=== PATIENT | female | born 1960 | race American Indian/Alaskan Native ===

== ENCOUNTER 2016-08-29 14:54 | Emergency (ER) | payer MEDICARE ==
[2016-08-29 16:13] LABS: Basophils % (Auto) 0.9 % (0.0-1.8); Eosinophils % (Auto) 3.3 % (0.0-4.3); Hematocrit 35.9 % (30.3-42.9); Hemoglobin 11.4 gm/dl (10.1-14.3); Mean Corpuscular HGB Conc 32 % (30-34); Mean Corpuscular Hemoglobin 26 pg (28-32); Mean Corpuscular Volume 83 fl (79-97); Platelet Count 216 K/mm3 (140-440); Red Blood Count 4.31 M/mm3 (3.65-5.03); Red Cell Distribution Width 14.5 % (13.2-15.2); White Blood Count 4.6 K/mm3 (4.5-11.0)
[2016-08-29 16:22] LABS: INR 0.92 (0.87-1.13)
[2016-08-29 16:23] LABS: Partial Thromboplastin Time 27.7 Sec. (24.2-36.6)
[2016-08-29 16:34] LABS: Anion Gap 17 mmol/L; Blood Urea Nitrogen 12 mg/dL (7-17); Calcium 9.1 mg/dL (8.4-10.2); Carbon Dioxide 27 mmol/L (22-30); Chloride 100.7 mmol/L (98-107); Glucose 253 mg/dL (65-100); Potassium 4.1 mmol/L (3.6-5.0); Sodium 141 mmol/L (137-145)
[2016-08-30] MEDS ORDERED: REGLAN PO ONE (02:57)
[2016-08-30] MEDS ORDERED: NORCO 5/325 PO ONE (02:57)
--- NOTE | 2016-08-30 03:01 | Emergency Department Report ---
ED ENT HPI - General Chief complaint: Sore Throat Stated complaint: CHEST PAIN Source: patient Mode of arrival: Ambulatory Limitations: No Limitations - History of Present Illness Initial comments: This is a pleasant 56-year-old female who indicates some throat discomfort for the past several months. She reports lower voice. Somewhat hoarse in nature. She also reports tenderness when speaking too much or straining her voice. She indicates she saw an ENT specialist in March or May. 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 She did receive a prescription for medication which she indicated did not help her discomfort. She reports following up in 1 month later and being told she needed some type of CT or ultrasound study. Nothing was arranged at this time patient was lost to follow-up and now presents here. She is asking for the reason for her pain and requesting that we do CT and ultrasound at this time. She does indicate equally that she has been having intermittent lower abdominal pains. She does attribute these to coughing so very much. Office due to irritation from the throat. No fevers or reported no nausea vomiting or diarrhea is reported. MD complaint: sore throat -: month(s) (several) Severity scale (0 -10): 7 Quality: burning Consistency: intermittent Improves with: none Worsens with: other (straining voice) Associated Symptoms: cough, sore throat. denies: fever - Related Data Home Medications Medication Instructions Recorded Confirmed Last Taken Metoprolol [Lopressor TAB] 50 mg PO BID 06/18/13 08/30/16 01/16/15 100 mg metFORMIN [Glucophage] 1,000 mg PO BID 06/18/13 08/30/16 01/16/15 2000mg Simvastatin 10 mg PO QDAY 05/06/14 08/30/16 01/16/15 10mg glipiZIDE [Glucotrol] 5 mg PO QDAY 08/22/15 08/30/16 Unknown Previous Rx's Medication Instructions Recorded Last Taken Type Famotidine [Pepcid] 20 mg PO BID #60 tablet 08/24/15 Unknown Rx HYDROcodone/APAP 5-325 [[place] 1 each PO Q6HR PRN #20 tablet 08/30/16 Unknown Rx 5-325 mg TAB] Metoclopramide [Reglan TAB] 10 mg PO TID PRN #30 tablet 08/30/16 Unknown Rx Omeprazole Magnesium [PriLOSEC Otc] 20 mg PO QDAY #30 tablet. 08/30/16 Unknown Rx Allergies Allergy/AdvReac Type Severity Reaction Status Date / Time codeine AdvReac Nausea Verified 08/29/16 15:27 ED Dental HPI - General Chief complaint: Sore Throat Stated complaint: CHEST PAIN Source: patient Mode of arrival: Ambulatory Limitations: No Limitations - Related Data Home Medications Medication Instructions Recorded Confirmed Last Taken Metoprolol [Lopressor TAB] 50 mg PO BID 06/18/13 08/30/16 01/16/15 100 mg metFORMIN [Glucophage] 1,000 mg PO BID 06/18/13 08/30/16 01/16/15 2000mg Simvastatin 10 mg PO QDAY 05/06/14 08/30/16 01/16/15 10mg glipiZIDE [Glucotrol] 5 mg PO QDAY 08/22/15 08/30/16 Unknown Previous Rx's Medication Instructions Recorded Last Taken Type Famotidine [Pepcid] 20 mg PO BID #60 tablet 08/24/15 Unknown Rx HYDROcodone/APAP 5-325 [[place] 1 each PO Q6HR PRN #20 tablet 08/30/16 Unknown Rx 5-325 mg TAB] Metoclopramide [Reglan TAB] 10 mg PO TID PRN #30 tablet 08/30/16 Unknown Rx Omeprazole Magnesium [PriLOSEC Otc] 20 mg PO QDAY #30 tablet. 08/30/16 Unknown Rx Allergies Allergy/AdvReac Type Severity Reaction Status Date / Time codeine AdvReac Nausea Verified 08/29/16 15:27 ED Review of Systems ROS: Stated complaint: CHEST PAIN Other details as noted in HPI Constitutional: denies: chills, fever Eyes: denies: eye pain, eye discharge, vision change ENT: throat pain. denies: ear pain Respiratory: cough. denies: shortness of breath, wheezing Cardiovascular: denies: chest pain, palpitations Endocrine: no symptoms reported Gastrointestinal: abdominal pain. denies: nausea, diarrhea, constipation Genitourinary: denies: urgency, dysuria, discharge Musculoskeletal: denies: back pain, joint swelling, arthralgia Skin: denies: rash, lesions Neurological: denies: headache, weakness, paresthesias Psychiatric: denies: anxiety, depression Hematological/Lymphatic: denies: easy bleeding, easy bruising ED Past Medical Hx - Past Medical History Hx Hypertension: Yes (pt denies) Hx Diabetes: Yes Hx Liver Disease: No Hx Renal Disease: No Hx Sickle Cell Disease: No Hx Arthritis: Yes Hx Psychiatric Treatment: Yes (anxiety) Hx HIV: No Additional medical history: A fib. High cholesterol - Surgical History Additional Surgical History: cardiac ablation. c section x 3, hysterectomy. right knee replacment 06/13 - Social History Smoking Status: Never Smoker Substance Use Type: None - Medications Home Medications: Home Medications Medication Instructions Recorded Confirmed Last Taken Type Metoprolol [Lopressor TAB] 50 mg PO BID 06/18/13 08/30/16 01/16/15 History 100 mg metFORMIN [Glucophage] 1,000 mg PO BID 06/18/13 08/30/16 01/16/15 History 2000mg Simvastatin 10 mg PO QDAY 05/06/14 08/30/16 01/16/15 History 10mg glipiZIDE [Glucotrol] 5 mg PO QDAY 08/22/15 08/30/16 Unknown History Famotidine [Pepcid] 20 mg PO BID #60 tablet 08/24/15 08/30/16 Unknown Rx HYDROcodone/APAP 5-325 [[place] 1 each PO Q6HR PRN #20 tablet 08/30/16 Unknown Rx 5-325 mg TAB] Metoclopramide [Reglan TAB] 10 mg PO TID PRN #30 tablet 08/30/16 Unknown Rx Omeprazole Magnesium [PriLOSEC Otc] 20 mg PO QDAY #30 tablet. 08/30/16 Unknown Rx ED Physical Exam - General Limitations: No Limitations General appearance: alert, in no apparent distress - Head Head exam: Present: atraumatic, normocephalic - Eye Eye exam: Present: normal appearance - ENT ENT exam: Present: mucous membranes moist - Neck Neck exam: Present: normal inspection, full ROM. Absent: tenderness, meningismus, lymphadenopathy, thyromegaly - Respiratory Respiratory exam: Present: normal lung sounds bilaterally. Absent: respiratory distress, rales, rhonchi, stridor - Cardiovascular Cardiovascular Exam: Present: regular rate, normal rhythm. Absent: systolic murmur, diastolic murmur, rubs, gallop - GI/Abdominal GI/Abdominal exam: Present: soft, normal bowel sounds. Absent: distended, tenderness, guarding - Extremities Exam Extremities exam: Present: normal inspection - Back Exam Back exam: Present: normal inspection - Neurological Exam Neurological exam: Present: alert, oriented X3 - Psychiatric Psychiatric exam: Present: normal affect, normal mood - Skin Skin exam: Present: warm, dry, intact, normal color. Absent: rash ED Course Vital Signs 08/29/16 08/30/16 08/30/16 15:28 02:28 02:30 Temperature 97.8 F Pulse Rate 108 H 99 H Respiratory 18 14 Rate Blood Pressure 119/77 123/95 Blood Pressure [Left] O2 Sat by Pulse 98 98 99 Oximetry 08/30/16 08/30/16 08/30/16 02:41 02:51 02:53 Temperature 98.5 F Pulse Rate 99 H 97 H 99 H Respiratory 20 17 11 L Rate Blood Pressure 123/95 105/69 Blood Pressure 105/69 [Left] O2 Sat by Pulse 100 99 99 Oximetry 08/30/16 08/30/16 08/30/16 02:57 03:00 03:11 Temperature Pulse Rate 95 H 99 H Respiratory 12 15 16 Rate Blood Pressure 107/70 107/70 Blood Pressure [Left] O2 Sat by Pulse 99 98 97 Oximetry 08/30/16 08/30/16 03:21 03:33 Temperature 98.6 F Pulse Rate 94 H Respiratory 16 Rate Blood Pressure 123/95 Blood Pressure [Left] O2 Sat by Pulse Oximetry - Reevaluation(s) Reevaluation #1: 08/30/16 05:30 Patient does clearly appears somewhat uncomfortable here. She does have a hoarse voice. Not muffled. This appears to be a very chronic problem. There is not even any specific exacerbation or acute process that seems to have occurred today. I believe she came into the ED today due to convenience that she had a friend who also is taking into the ED for evaluation. Her sedation with patient regarding her lab tests. From a cardiac standpoint I do not have any suspicion of this being an etiology. She already has been seen by a specialist. I do not feel I have much more to add at this point. I do not suspect impending airway obstruction. I do not suspect an infectious process. Cannot rule out mass or tumor or malignancy. I do feel further evaluation with possible imaging is likely necessary. I did encourage her to follow up with her ENT physician for further delineation of the type of studies they would like to have done. I did review with patient her labs. They are very unremarkable. I feel she is safe for home. Will give symptomatic treatment for now. ED Medical Decision Making - Lab Data Result diagrams: 08/29/16 16:00 08/29/16 16:00 Critical care attestation.: If time is entered above; I have spent that time in minutes in the direct care of this critically ill patient, excluding procedure time. ED Disposition Clinical Impression: Throat pain in adult Disposition: DISCHARGED TO HOME OR SELFCARE Is pt being admited?: No Does the pt Need Aspirin: No Condition: Stable Additional Instructions: Follow with your ENT doctor for continued evaluation and care. I want to trial an antacid to see if it helps with your symptoms. Prescriptions: HYDROcodone/APAP 5-325 [[place] 5-325 mg TAB] 1 each PO Q6HR PRN #20 tablet PRN Reason: Pain Metoclopramide [Reglan TAB] 10 mg PO TID PRN #30 tablet PRN Reason: Nausea Omeprazole Magnesium [PriLOSEC Otc] 20 mg PO QDAY #30 tablet.dr Referrals: SATISH JADE MD [Primary Care Provider] - 3-5 Days Time of Disposition: 03:01
[2016-08-30 03:33] VITALS: BP 123/95
== END 2016-08-30 03:33 | disposition home or self-care (01) ==
LOC: ED 14:54
DX: R07.0 Pain in throat (principal); I10 Essential (primary) hypertension; E11.9 Type 2 diabetes mellitus without complications; M19.90 Unspecified osteoarthritis, unspecified site; E78.00 Pure hypercholesterolemia, unspecified; I48.91 Unspecified atrial fibrillation; Z88.6 Allergy status to analgesic agent
CPT/HCPCS: 36415; 80048; 84484; 85025; 85610; 85730; 93005; 93010; 99284

== ENCOUNTER 2016-11-12 17:38 | Emergency (ER) | payer MEDICARE ==
[2016-11-12] MEDS ORDERED: ZOFRAN ONE (17:42)
[2016-11-12] MEDS ORDERED: ZOFRAN IV ONE (17:50)
[2016-11-12] MEDS ORDERED: MORPHINE IV ONE (18:51)
[2016-11-12] MEDS ORDERED: TORADOL IV ONE (18:51)
[2016-11-12] MEDS ORDERED: NACL 0.9% 1000 ML 1,000 ML IV ONE (18:51)
--- NOTE | 2016-11-12 18:58 | Emergency Department Report ---
ED Chest Pain HPI - General Chief Complaint: Chest Pain Stated Complaint: CHEST PAINS Time Seen by Provider: 11/12/16 18:35 Source: patient Mode of arrival: Stretcher Limitations: No Limitations - History of Present Illness MD Complaint: chest pain Onset/Timin -: Gradual, days(s) Pain Location: substernal, epigastric Pain Radiation: LUE Severity: mild Severity scale (0 -10): 1 Consistency: intermittent Improves With: nothing Worsens With: nothing re: denies: nausea, vomting, diaphoresis, dyspnea, sense of impending doom Other Symptoms: cough Treatments Prior to Arrival: none Aspirin use within the Past 7 Days: (1) Yes - Related Data On Oral Contraceptives: No Home Medications Medication Instructions Recorded Confirmed Last Taken Metoprolol [Lopressor TAB] 50 mg PO BID 06/18/13 08/30/16 01/16/15 100 mg metFORMIN [Glucophage] 1,000 mg PO BID 06/18/13 08/30/16 01/16/15 2000mg Simvastatin 10 mg PO QDAY 05/06/14 08/30/16 01/16/15 10mg glipiZIDE [Glucotrol] 5 mg PO QDAY 08/22/15 08/30/16 Unknown Previous Rx's Medication Instructions Recorded Last Taken Type Metoclopramide [Reglan TAB] 10 mg PO TID PRN #30 tablet 08/30/16 Unknown Rx Omeprazole Magnesium [PriLOSEC Otc] 20 mg PO QDAY #30 tablet. 08/30/16 Unknown Rx Famotidine [Pepcid] 20 mg PO BID #60 tablet 11/12/16 Unknown Rx HYDROcodone/APAP 5-325 [[place] 1 each PO Q6HR PRN #20 tablet 11/12/16 Unknown Rx 5-325 mg TAB] Allergies Allergy/AdvReac Type Severity Reaction Status Date / Time codeine AdvReac Nausea Verified 08/29/16 15:27 TIERNEY score - Tierney Score Age > 65: (0) No Aspirin use within the Past 7 Days: (1) Yes 3 or more CAD Risk Factors: (0) No 2 or more Angina events in past 24 hrs: (0) No Known CAD with more than 50% Stenosis: (0) No Elevated Cardiac Markers: (0) No ST Deviation Greater than 0.5mm: (0) No TIERNEY Score: 1 ED Review of Systems ROS: Stated complaint: CHEST PAINS Other details as noted in HPI Comment: All other systems reviewed and negative ED Past Medical Hx - Past Medical History Hx Hypertension: Yes (pt denies) Hx Diabetes: Yes Hx Liver Disease: No Hx Renal Disease: No Hx Sickle Cell Disease: No Hx Arthritis: Yes Hx Psychiatric Treatment: Yes (anxiety) Hx HIV: No Additional medical history: A fib. High cholesterol - Surgical History Additional Surgical History: cardiac ablation. c section x 3, hysterectomy. right knee replacment 06/13 - Social History Smoking Status: Never Smoker - Medications Home Medications: Home Medications Medication Instructions Recorded Confirmed Last Taken Type Metoprolol [Lopressor TAB] 50 mg PO BID 06/18/13 08/30/16 01/16/15 History 100 mg metFORMIN [Glucophage] 1,000 mg PO BID 06/18/13 08/30/16 01/16/15 History 2000mg Simvastatin 10 mg PO QDAY 05/06/14 08/30/16 01/16/15 History 10mg glipiZIDE [Glucotrol] 5 mg PO QDAY 08/22/15 08/30/16 Unknown History Metoclopramide [Reglan TAB] 10 mg PO TID PRN #30 tablet 08/30/16 Unknown Rx Omeprazole Magnesium [PriLOSEC Otc] 20 mg PO QDAY #30 tablet. 08/30/16 Unknown Rx Famotidine [Pepcid] 20 mg PO BID #60 tablet 11/12/16 Unknown Rx HYDROcodone/APAP 5-325 [[place] 1 each PO Q6HR PRN #20 tablet 11/12/16 Unknown Rx 5-325 mg TAB] ED Physical Exam - General Limitations: No Limitations General appearance: alert, in no apparent distress - Head Head exam: Present: atraumatic, normocephalic - Eye Eye exam: Present: normal appearance - ENT ENT exam: Present: mucous membranes moist - Neck Neck exam: Present: normal inspection - Respiratory Respiratory exam: Present: normal lung sounds bilaterally. Absent: respiratory distress - Cardiovascular Cardiovascular Exam: Present: regular rate, normal rhythm. Absent: systolic murmur, diastolic murmur, rubs, gallop - GI/Abdominal GI/Abdominal exam: Present: soft, normal bowel sounds - Extremities Exam Extremities exam: Present: normal inspection - Back Exam Back exam: Present: normal inspection - Neurological Exam Neurological exam: Present: alert, oriented X3 - Psychiatric Psychiatric exam: Present: normal affect, normal mood - Skin Skin exam: Present: warm, dry, intact, normal color. Absent: rash ED Course Vital Signs 11/12/16 11/12/16 11/12/16 18:08 18:56 18:58 Temperature 98.3 F Pulse Rate 87 Respiratory 16 16 Rate Blood Pressure 118/79 Blood Pressure 120/68 [Left] O2 Sat by Pulse 99 99 Oximetry ED Medical Decision Making - Lab Data Result diagrams: 11/12/16 19:06 11/12/16 19:06 - EKG Data EKG shows normal: sinus rhythm - EKG Data When compared to previous EKG there are: no significant change Interpretation: unchanged when compared t - Radiology Data Radiology results: image reviewed - Medical Decision Making patient doing well here in the er, labs negative , reproducible chest pain on exam , no pain at this time , troponin negative , will follow up with [facility] tomorrow if pain persists. Aspirin given by ems Critical care attestation.: If time is entered above; I have spent that time in minutes in the direct care of this critically ill patient, excluding procedure time. ED Disposition Clinical Impression: Chest pain Disposition: DISCHARGED TO HOME OR SELFCARE Is pt being admited?: No Does the pt Need Aspirin: No Condition: Good Instructions: Chest Pain (ED) Prescriptions: Famotidine [Pepcid] 20 mg PO BID #60 tablet HYDROcodone/APAP 5-325 [[place] 5-325 mg TAB] 1 each PO Q6HR PRN #20 tablet PRN Reason: Pain
[2016-11-12 19:22] LABS: Basophils % (Auto) 0.6 % (0.0-1.8); Eosinophils % (Auto) 4.6 % (0.0-4.3); Hemoglobin 11.5 gm/dl (10.1-14.3); Mean Corpuscular HGB Conc 32 % (30-34); Mean Corpuscular Hemoglobin 27 pg (28-32); Mean Corpuscular Volume 85 fl (79-97); Platelet Count 235 K/mm3 (140-440); Red Blood Count 4.21 M/mm3 (3.65-5.03); Red Cell Distribution Width 14.4 % (13.2-15.2)
[2016-11-12 19:43] LABS: BUN/Creatinine Ratio 16.66; Blood Urea Nitrogen 15 mg/dL (7-17); Calcium 8.6 mg/dL (8.4-10.2); Carbon Dioxide 25 mmol/L (22-30); Glucose 235 mg/dL (65-100)
[2016-11-12 19:44] LABS: Anion Gap 18 mmol/L; Chloride 101.4 mmol/L (98-107); Potassium 4.4 mmol/L (3.6-5.0); Sodium 140 mmol/L (137-145)
[2016-11-12 20:58] VITALS: BP 120/80
--- NOTE | 2016-11-13 07:44 | XRay Report ---
ROUTINE CHEST, TWO VIEWS: HISTORY: chest pain. The trachea, heart, mediastinal contour, lung fleming and bony thorax are unremarkable. No significant change since 08/22/15. IMPRESSION: Unremarkable chest x-ray.
== END 2016-11-12 20:57 | disposition home or self-care (01) ==
LOC: ED 17:38
DX: R07.2 Precordial pain (principal); I10 Essential (primary) hypertension; E11.9 Type 2 diabetes mellitus without complications; M19.90 Unspecified osteoarthritis, unspecified site; F41.9 Anxiety disorder, unspecified; E78.00 Pure hypercholesterolemia, unspecified; Z90.710 Acquired absence of both cervix and uterus; Z88.5 Allergy status to narcotic agent
CPT/HCPCS: 36415; 71020; 80048; 84484; 85025; 93005; 93010; 96361; 96374; 96375; 99285; J1885; J2270; J2405; J7030

== ENCOUNTER 2017-05-28 11:57 | Inpatient (IN) | payer MEDICARE ==
[2017-05-28] MEDS ORDERED: NACL 0.9% 1000 ML 1,000 ML ONE (12:37)
[2017-05-28] MEDS ORDERED: NACL 0.9% 1000 ML 1,000 ML IV ONE ×2 (12:54→13:50)
[2017-05-28] MEDS ORDERED: REGLAN IV ONE (12:54)
[2017-05-28] MEDS ORDERED: SUBLIMAZE IV ONE (13:00)
[2017-05-28 13:10] LABS: Basophils % (Auto) 0.4 % (0.0-1.8); Eosinophils % (Auto) 3.1 % (0.0-4.3); Hematocrit 35.6 % (30.3-42.9); Hemoglobin 11.1 gm/dl (10.1-14.3); Mean Corpuscular HGB Conc 31 % (30-34); Mean Corpuscular Volume 82 fl (79-97); Platelet Count 256 K/mm3 (140-440); Red Blood Count 4.32 M/mm3 (3.65-5.03); Red Cell Distribution Width 15.5 % (13.2-15.2); White Blood Count 7.2 K/mm3 (4.5-11.0)
[2017-05-28 13:13] LABS: Mean Corpuscular Hemoglobin 26 pg (28-32)
[2017-05-28 13:21] LABS: INR 0.93 (0.87-1.13); Partial Thromboplastin Time 31.6 Sec. (24.2-36.6)
[2017-05-28] MEDS ORDERED: SUBLIMAZE ONE (13:32)
[2017-05-28 13:39] LABS: Alanine Aminotransferase 10 units/L (7-56); Albumin 3.9 g/dL (3.9-5); Albumin/Globulin Ratio 1.2 %; Alkaline Phosphatase 82 units/L (35-129); Anion Gap 22 mmol/L; BUN/Creatinine Ratio 23; Blood Urea Nitrogen 23 mg/dL (7-17); Calcium 8.7 mg/dL (8.4-10.2); Carbon Dioxide 21 mmol/L (22-30); Chloride 97.1 mmol/L (98-107); Glucose 460 mg/dL (65-100); Potassium 4.2 mmol/L (3.6-5.0); Sodium 136 mmol/L (137-145); Total Protein 7.2 g/dL (6.3-8.2)
--- NOTE | 2017-05-28 13:46 | XRay Report ---
AP CHEST: History: Chest pain. AP view of the chest demonstrates a normal mediastinal and cardiac contour with clear lungs and normal bony and soft tissue structures. IMPRESSION: Normal AP chest.
--- NOTE | 2017-05-28 14:51 | Emergency Department Report ---
ED Chest Pain HPI - General Chief Complaint: Chest Pain Stated Complaint: CHEST PAIN Time Seen by Provider: 05/28/17 12:22 Source: patient Mode of arrival: Ambulatory Limitations: No Limitations - History of Present Illness Initial Comments: This is a 56 year-old female presents to the emergency department via EMS from home with complaint of some chest pain with radiation to the right shoulder, some shortness of breath, and some "heavy legs" that has been going on for the past 3 days but has been getting progressively worse. She has a history of atrial fibrillation with previous ablation, hyperlipidemia , [id number] diabetes. She did not take anything for her symptoms prior to presentation. 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 Ovalle. She denies any tobacco or illicit drug use or abuse. No recent travel or sick contacts at home. - Related Data Home Medications Medication Instructions Recorded Confirmed Last Taken metFORMIN [Glucophage] 1,000 mg PO BID 06/18/13 08/30/16 01/16/15 2000mg Cyclobenzaprine [Flexeril] 10 mg PO TID PRN 05/28/17 05/28/17 05/27/17 ISOSORBIDE MONOnitrate [Imdur ER] 30 mg PO DAILY 05/28/17 05/28/17 05/27/17 Promethazine [Phenergan TAB] 25 mg PO BID 05/28/17 05/28/17 05/27/17 Simvastatin [Zocor TAB] 20 mg PO QHS 05/28/17 05/28/17 05/27/17 clonazePAM [KlonoPIN] 2 mg PO QPM 05/28/17 05/28/17 05/27/17 clonazePAM [Klonopin] 1 mg PO QAM 05/28/17 05/28/17 05/27/17 Allergies Allergy/AdvReac Type Severity Reaction Status Date / Time codeine AdvReac Mild Nausea Verified 05/28/17 12:08 Heart Score - HEART Score History: Moderately suspicious EKG: Non-specific Age: 45-65 Risk factors: 1-2 risk factors Troponin: < normal limit HEART Score: 4 ED Review of Systems ROS: Stated complaint: CHEST PAIN Other details as noted in HPI Comment: All other systems reviewed and negative Constitutional: denies: chills, fever Eyes: denies: eye pain, eye discharge, vision change ENT: denies: ear pain, throat pain Respiratory: shortness of breath. denies: cough Cardiovascular: chest pain. denies: edema Gastrointestinal: denies: abdominal pain, nausea, diarrhea Genitourinary: denies: urgency, dysuria, discharge Musculoskeletal: arthralgia. denies: joint swelling Skin: denies: rash, lesions Neurological: denies: headache, numbness ED Past Medical Hx - Past Medical History Previous Medical History?: Yes Hx Hypertension: (pt denies) Hx Diabetes: Yes Hx Liver Disease: No Hx Renal Disease: No Hx Sickle Cell Disease: No Hx Arthritis: Yes Hx Psychiatric Treatment: Yes (anxiety) Hx HIV: No Additional medical history: A fib. High cholesterol - Surgical History Additional Surgical History: cardiac ablation. c section x 3, hysterectomy. right knee replacment 06/13 - Social History Smoking Status: Never Smoker - Medications Home Medications: Home Medications Medication Instructions Recorded Confirmed Last Taken Type metFORMIN [Glucophage] 1,000 mg PO BID 06/18/13 08/30/16 01/16/15 History 2000mg Cyclobenzaprine [Flexeril] 10 mg PO TID PRN 05/28/17 05/28/17 05/27/17 History ISOSORBIDE MONOnitrate [Imdur ER] 30 mg PO DAILY 05/28/17 05/28/17 05/27/17 History Promethazine [Phenergan TAB] 25 mg PO BID 05/28/17 05/28/17 05/27/17 History Simvastatin [Zocor TAB] 20 mg PO QHS 05/28/17 05/28/17 05/27/17 History clonazePAM [KlonoPIN] 2 mg PO QPM 05/28/17 05/28/17 05/27/17 History clonazePAM [Klonopin] 1 mg PO QAM 05/28/17 05/28/17 05/27/17 History ED Physical Exam - General Limitations: No Limitations - Other Other exam information: GENERAL: The patient is well-developed well-nourished. Patient appears uncomfortable. HENT: Normocephalic. Atraumatic. Patient has moist mucous membranes. EYES: Extraocular motions are intact. Pupils equal reactive to light bilaterally. NECK: Supple. Trachea is midline. CHEST/LUNGS: Clear to auscultation. There is no respiratory distress noted. HEART/CARDIOVASCULAR: Regular. There is severe tachycardia. There is no murmur. ABDOMEN: Abdomen is soft, nontender. Patient has normal bowel sounds. There is no abdominal distention. SKIN: Skin is warm and dry. NEURO: The patient is awake, alert, and oriented. The patient is cooperative. The patient has no focal neurologic deficits. The patient has normal speech. MUSCULOSKELETAL: There is no tenderness or deformity. There is no limitation range of motion. There is no evidence of acute injury. ED Course Vital Signs 05/28/17 05/28/17 05/28/17 12:08 12:25 12:30 Temperature 97.6 F Pulse Rate 87 158 H 171 H Respiratory 18 16 31 H Rate Blood Pressure 83/62 100/68 O2 Sat by Pulse 99 98 Oximetry 05/28/17 12:45 Temperature Pulse Rate 104 H Respiratory 12 Rate Blood Pressure 102/69 O2 Sat by Pulse 99 Oximetry TIERNEY score - Tierney Score Age > 65: (0) No Aspirin use within the Past 7 Days: (1) Yes 3 or more CAD Risk Factors: (0) No 2 or more Angina events in past 24 hrs: (1) Yes Known CAD with more than 50% Stenosis: (0) No Elevated Cardiac Markers: (0) No ST Deviation Greater than 0.5mm: (0) No TIERNEY Score: 2 ED Medical Decision Making - Lab Data Result diagrams: 05/28/17 12:47 05/28/17 12:47 - EKG Data -: EKG Interpreted by Me - EKG Data Interpretation: other (SVT at rate of 171 bpm, normal axis, Q waves to the anteroseptal leads with some mild ST depressions but no ST elevation.) Repeat EKG after adenosine shows a sinus tachycardia with a rate of 107, borderline left axis deviation, T-wave inversions to the anterolateral leads. No ST elevation NJ 05/28/17 14:48 - Radiology Data Radiology results: image reviewed interpreted by me: Chest x-ray does not show any acute process. There are no pleural effusions, obvious pneumonia and there is no pneumothorax. - Medical Decision Making 56-year-old female presents with a few days of chest pain and presents with SVT of about 170. She converted to sinus tachycardia after 6 mg of adenosine. Labs thus far show hyperglycemia with a blood sugar of about 450. There is a slight elevation in the anion gap but no venous acidosis as of yet. The patient is a [id number] diabetic. She was given 2 L of IV fluid thus far and will be given some IV insulin to start. Troponin negative and negative d-dimer thus far. Chest x-ray does not show any acute process. She will be admitted to the hospital for further evaluation and treatment has been accepted for admission by the hospitalist, Dr. Hinojosa. - Differential Diagnosis dysrhythmia, [place], PE, pneumonia Critical Care Time: No Critical care attestation.: If time is entered above; I have spent that time in minutes in the direct care of this critically ill patient, excluding procedure time. 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
[2017-05-28] MEDS ORDERED: BABY ASPIRIN PO ONE (14:52)
[2017-05-28] MEDS ORDERED: D50W (25GM) Syringe IV PRN (18:30)
[2017-05-28] MEDS: DILAUDID IV PRN (20:13)
[2017-05-28] MEDS: ZOFRAN IV PRN (20:14)
--- NOTE | 2017-05-28 21:06 | Event Note ---
Date: 05/28/17 See Dictated H/P in reports SVT Chest pain Htn
[2017-05-28] MEDS ORDERED: FLEXERIL PO PRN (21:08)
[2017-05-28] MEDS: NOVOLOG SUB-Q SCH (22:00)
[2017-05-28] MEDS ORDERED: NON-FORMULARY (Simvastatin 20 MG) PO SCH (22:00)
[2017-05-28] MEDS ORDERED: NOVOLOG SUB-Q SCH (22:00)
[2017-05-28] MEDS: GLUCOPHAGE PO SCH (22:40)
[2017-05-28] MEDS: HEPARIN SUB-Q SCH (23:17)
[2017-05-28] MEDS: PHENERGAN PO SCH (23:18)
[2017-05-29] MEDS: DILAUDID IV PRN ×4 (00:34→18:40)
[2017-05-29] MEDS: ZOFRAN IV PRN ×2 (06:24→18:40)
[2017-05-29] MEDS: HEPARIN SUB-Q SCH ×3 (06:24→22:31)
[2017-05-29] MEDS: AMARYL PO SCH (08:00)
[2017-05-29] MEDS ORDERED: LEXISCAN IV ONE (08:40)
[2017-05-29] MEDS ORDERED: IMDUR PO SCH (10:00)
[2017-05-29] MEDS ORDERED: NON-FORMULARY (Clonazepam [Klonopin] 1 MG) PO SCH (10:00)
--- NOTE | 2017-05-29 11:51 | History and Physical Report ---
CHIEF COMPLAINT: 1. Palpitations off and on for the past 3 days. 2. Chest pain of one day duration. HISTORY OF PRESENT ILLNESS: A 56-year-old -Iranian female with history of recurrent SVT from around 1999, comes in for palpitations off and on for the last 3 days. Lasting for a few minutes. Associated with diaphoresis. Also associated with chest pain. The patient has been following with [email or web address]. The patient is on metoprolol for control of heart rate. No recent travel. No shortness of breath. Only palpitations. No exacerbating or relieving factors. Chest pain is discomfort, retrosternal, and not radiating. PAST MEDICAL HISTORY: Significant for hypertension. Type 2 diabetes. Arthritis. Generalized anxiety disorder. Atrial fibrillation by history. High cholesterol. PAST SURGICAL HISTORY: Cardiac ablation a few years ago, x 3, hysterectomy and right knee replacement. SOCIAL HISTORY: Does not smoke. FAMILY HISTORY: Significant for hypertension. REVIEW OF SYSTEMS: A 14-point review of systems done, other than palpitations and a dull chest pain, review of systems essentially negative. A 14-point review of systems done. CURRENT MEDICATIONS: Metformin 1000 b.i.d., isosorbide 30 mg p.o. daily, Flexeril 10 mg t.i.d., Phenergan 25 b.i.d., simvastatin 20 mg p.o. at bedtime, Klonopin 1 mg in the morning and 2 mg in the evening. PHYSICAL EXAMINATION: GENERAL: Middle-aged female, cooperative during examination. VITAL SIGNS: Blood pressure is 100/68, temperature is 97.6, pulse is 87, respirations are 18. HEENT: Unremarkable. Pupils equal and reactive. NECK: Supple, no lymphadenopathy, no thyromegaly. LUNGS: Clear to auscultation and percussion. Good air entry. CARDIOVASCULAR: S1, S2 heard. No gallop, no murmur, no rub. Apical impulse in left fifth intercostal space and midclavicular line. ABDOMEN: Soft and benign. No hepatosplenomegaly. No guarding, no rigidity. Hernial orifices are normal. EXTREMITIES: Good pedal pulses. No pedal edema. CENTRAL NERVOUS SYSTEM: Alert and oriented x 4, nonfocal exam. LABORATORY DATA: Sodium is slightly low at 136, BUN and creatinine 23 and 1.0. Glucose is 460. EKG: SVT at a heart rate of 171, normal axis, Q-waves in the anterior septal leads, mild ST depressions. Repeat EKG after adenosine shows sinus tachycardia with heart rate of 107, T-wave inversions. ASSESSMENT AND PLAN: 1. Supraventricular tachycardia. The patient is on metoprolol and will defer to Cardiology regarding adding amiodarone or diltiazem. Cardiology consult. 2. Chest pain, rule out myocardial infarction, chest pain protocol. Serial cardiac enzymes and Lexiscan. 3. Type 2 diabetes, uncontrolled. The patient started on insulin. Also, continue metformin 1000 b.i.d. We will add glimepiride 4 mg daily. 4. Hyperlipidemia. Continue simvastatin 20 mg p.o. at bedtime. 5. Generalized anxiety disorder. Continue clonazepam twice a day. 6. Deep venous thrombosis prophylaxis, Lovenox 40 mg subcutaneous daily. JOB# [id number] VSM/NTS
[2017-05-29] MEDS: PHENERGAN PO SCH ×2 (12:06→22:27)
[2017-05-29] MEDS: TRADJENTA PO SCH (12:07)
[2017-05-29] MEDS: GLUCOPHAGE PO SCH ×2 (12:07→22:28)
[2017-05-29] MEDS: NOVOLOG SUB-Q SCH ×4 (12:10→22:32)
--- NOTE | 2017-05-29 12:23 | Consultation ---
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 She is followed in our office by Dr. JAMIR Chaudhary. She presented with c/o intermittent palpitations, rapid heart rate and left arm discomfort for 3 days prior to arrival. She states that her blood sugar has also been elevated for the past several days. She denies any chest pain, n/v, diaphoresis, dizziness or syncope. She called our office yesterday with these complaints and was instructed to report to ED for further eval/ management. Following arrival in ED, pt was found to be in SVT with HR 170s. Her BG was noted to be 460. She was given 6mg IV adenosine in ED and was successfully converted to SR. She remained in SR overnight and denies any current complaints on evaluation. Echo done 09/2015 showed EF 60%, mild LVH, impaired relaxation, mild TR, trace MR. Hernandez MPI stress test done 08/2015 was negative for ischemia, EF 63%. Past History Past Medical History: arrhythmia, diabetes, hyperlipidemia Past Surgical History: Other (s/p ablation) Social history: denies: smoking, alcohol abuse, prescription drug abuse Medications and Allergies Allergies Allergy/AdvReac Type Severity Reaction Status Date / Time codeine AdvReac Mild Nausea Verified 05/28/17 12:08 Home Medications Medication Instructions Recorded Confirmed Last Taken Type metFORMIN [Glucophage] 1,000 mg PO BID 06/18/13 05/28/17 05/27/17 History Cyclobenzaprine [Flexeril] 10 mg PO TID PRN 05/28/17 05/28/17 05/27/17 History ISOSORBIDE MONOnitrate [Imdur ER] 30 mg PO DAILY 05/28/17 05/28/17 05/27/17 History Promethazine [Phenergan TAB] 25 mg PO BID 05/28/17 05/28/17 05/27/17 History Simvastatin [Zocor TAB] 20 mg PO QHS 05/28/17 05/28/17 05/27/17 History clonazePAM [KlonoPIN] 2 mg PO QPM 05/28/17 05/28/17 05/27/17 History clonazePAM [Klonopin] 1 mg PO QAM 05/28/17 05/28/17 05/27/17 History Active Meds: Active Medications Clonazepam (Klonopin) 2 mg PO QPM [facility] Clonazepam (Klonopin) 1 mg PO QAM [facility] Last Admin: 05/29/17 12:07 Dose: 1 mg Cyclobenzaprine HCl (Flexeril) 10 mg PO TID PRN PRN Reason: Muscle Spasm Dextrose (D50w (25gm) Syringe) 50 ml IV PRN PRN PRN Reason: Hypoglycemia Glimepiride (Amaryl) 2 mg PO QDDIAB [facility] Last Admin: 05/29/17 08:00 Dose: Not Given Heparin Sodium (Porcine) (Heparin) 5,000 unit SUB-Q Q8HR [facility] Last Admin: 05/29/17 06:24 Dose: 5,000 unit Hydromorphone HCl (Dilaudid) 1 mg IV Q4H PRN PRN Reason: Pain , Severe (7-10) Last Admin: 05/29/17 12:03 Dose: 1 mg Insulin Aspart (Novolog) 0 units SUB-Q ACHS [facility] PRN Reason: Protocol Last Admin: 05/29/17 12:10 Dose: Not Given Isosorbide Mononitrate (Imdur) 30 mg PO DAILY [facility] Last Admin: 05/29/17 12:07 Dose: 30 mg Lactulose (Cephulac) 30 gm PO QDAY [facility] Linagliptin (Tradjenta) 5 mg PO QDAY [facility] Last Admin: 05/29/17 12:07 Dose: 5 mg Metformin HCl (Glucophage) 1,000 mg PO BID [facility] Last Admin: 05/29/17 12:07 Dose: 1,000 mg Ondansetron HCl (Zofran) 4 mg IV Q4H PRN PRN Reason: Nausea And Vomiting Last Admin: 05/29/17 06:24 Dose: 4 mg Pravastatin Sodium (Pravachol) 40 mg PO QHS [facility] Promethazine HCl (Phenergan) 25 mg PO BID [facility] Last Admin: 05/29/17 12:06 Dose: 25 mg Review of Systems Constitutional: no weight loss, no weight gain, no fever, no chills, no sweats Ears, nose, mouth and throat: no ear pain, no nose pain, no sinus pressure, no sinus pain Cardiovascular: palpitations, rapid/irregular heart beat, shortness of breath, no chest pain, no orthopnea, no edema, no syncope, no lightheadedness, no dyspnea on exertion, no paroxysmal nocturnal dyspnea, no high blood pressure Respiratory: shortness of breath, no cough, no dyspnea on exertion, no congestion, no wheezing, no pain on inspiration Gastrointestinal: no abdominal pain, no nausea, no vomiting, no diarrhea, no constipation, no change in bowel habits Genitourinary Female: no pelvic pain, no flank pain, no dysuria, no urinary frequency, no urgency Musculoskeletal: arm numbness/tingling (LUE), no neck stiffness, no neck pain, no shooting arm pain, no low back pain, no shooting leg pain, no leg numbness/ tingling, no redness of joints Integumentary: no rash, no pruritis, no redness, no sores, no wounds Neurological: no head injury, no paralysis, no weakness, no parathesias, no numbness, no tingling, no seizures, no syncope Psychiatric: no anxiety Endocrine: no cold intolerance, no heat intolerance Hematologic/Lymphatic: no easy bruising, no easy bleeding, no lymphadenopathy Allergic/Immunologic: no urticaria, no wheezing, no persistent infections Physical Examination Vital Signs Temp Pulse Resp BP Pulse Ox 97.6 F 87 18 83/62 99 05/28/17 12:08 05/28/17 12:08 05/28/17 12:08 05/28/17 12:08 05/28/17 12:08 General appearance: no acute distress HEENT: Positive: PERRL, Normocephaly, Mucus Membranes Moist Neck: Positive: neck supple, trachea midline Cardiac: Positive: Reg Rate and Rhythm, S1/S2 Lungs: Positive: clear to auscultation Neuro: Positive: Grossly Intact, Cranial Nerve 2-12 Intact Abdomen: Positive: Unremarkable, Soft, Active Bowel Sounds. Negative: Tender Skin: Positive: Clear. Negative: Rash, Wound Musculoskeletal: No Fluid Collection, No Pain, Normal Range of Motion Extremities: Absent: edema Results 05/28/17 12:47 05/28/17 12:47 Cardiac Enzymes 05/28/17 Range/Units 12:47 AST 11 (5-40) units/L Coagulation 05/28/17 Range/Units 12:47 PT 12.9 (12.2-14.9) Sec. INR 0.93 (0.87-1.13) APTT 31.6 (24.2-36.6) Sec. CBC 05/28/17 Range/Units 12:47 WBC 7.2 (4.5-11.0) K/mm3 RBC 4.32 (3.65-5.03) M/mm3 Hgb 11.1 (10.1-14.3) gm/dl Hct 35.6 (30.3-42.9) % Plt Count 256 (140-440) K/mm3 Lymph # 1.7 (1.2-5.4) K/mm3 Stanley # 0.5 (0.0-0.8) K/mm3 Eos # 0.2 (0.0-0.4) K/mm3 Baso # 0.0 (0.0-0.1) K/mm3 Comprehensive Metabolic Panel 05/28/17 Range/Units 12:47 Sodium 136 L (137-145) mmol/L Potassium 4.2 (3.6-5.0) mmol/L Chloride 97.1 L (98-107) mmol/L Carbon Dioxide 21 L (22-30) mmol/L BUN 23 H (7-17) mg/dL Creatinine 1.0 (0.7-1.2) mg/dL Glucose 460 H (65-100) mg/dL Calcium 8.7 (8.4-10.2) mg/dL AST 11 (5-40) units/L ALT 10 (7-56) units/L Alkaline Phosphatase 82 (35-129) units/L Total Protein 7.2 (6.3-8.2) g/dL Albumin 3.9 (3.9-5) g/dL - Imaging and Cardiology Echo: report reviewed (09/2015: EF 60%, mild LVH, impaired relaxation, mild TR, trace MR) EKG: report reviewed, image reviewed EKG interpretations - Telemetry EKG Rhythm: Sinus Rhythm Additional Comments: SVT Assessment and Plan Assessment: SVT --> SR s/p AVNRT ablation at [facility] 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 S/p lexiscan MPI stress test this AM which was negative for ischemia, normal EF. D/c imdur and increase home Toprol XL from 50mg daily to 75mg daily. Currently stable cardiac status. Pending pt tolerates increase in Toprol XL dosage, possible discharge home this afternoon. Consider repeat echo as OP. Follow up in our [place] office with Alyx Epps NP, on 06/05/2017 @ 1:00PM. The patient has been seen in conjunction with Dr. JAMIR Chaudhary who agrees with the assessment and plan of care.
[2017-05-29] MEDS: CEPHULAC PO SCH (15:09)
[2017-05-29] MEDS: TOPROL XL PO SCH (15:13)
--- NOTE | 2017-05-29 15:17 | Progress Note ---
Assessment and Plan - Patient Problems (1) Chest pain, rule out acute myocardial infarction Current Visit: Yes Status: Acute Plan to address problem: Stress test negative (2) SVT (supraventricular tachycardia) Current Visit: Yes Status: Acute Plan to address problem: Resolved.Metoprolol increased to 75 (3) Diabetes mellitus, type 2 Current Visit: No Status: Chronic Qualifiers: Diabetes mellitus complication status: without complication Plan to address problem: Uncontrolled Added Glimepride 2 mg po qd and tradjenta 5 mg po qd Patient reluctant to be started on Basal insulin. Follow up with pcp for adjustment of Diabetes medicines (4) HTN (hypertension) Current Visit: No Status: Chronic Qualifiers: Hypertension type: essential hypertension Qualified Code(s): I10 - Essential (primary) hypertension Plan to address problem: Cont antihypertensives (5) DVT prophylaxis Current Visit: No Status: Acute Plan to address problem: On Lovenox Subjective Date of service: 05/29/17 Principal diagnosis: S/p SVT Interval history: Doing better.No palpitations Objective - Constitutional Vitals: Vital Signs - 12hr 05/29/17 05/29/17 05/29/17 03:21 03:31 03:41 Temperature Pulse Rate Respiratory Rate Blood Pressure 124/85 124/85 124/85 O2 Sat by Pulse 100 98 97 Oximetry 05/29/17 05/29/17 05/29/17 03:51 04:01 04:11 Temperature Pulse Rate Respiratory Rate Blood Pressure 124/85 124/85 124/85 O2 Sat by Pulse 98 99 98 Oximetry 05/29/17 05/29/17 05/29/17 04:21 04:31 04:41 Temperature Pulse Rate Respiratory Rate Blood Pressure 124/85 124/85 124/85 O2 Sat by Pulse 98 97 99 Oximetry 05/29/17 05/29/17 05/29/17 04:51 05:05 08:37 Temperature 97.4 F L Pulse Rate 96 H 95 H Respiratory 18 Rate Blood Pressure 124/85 95/54 113/82 O2 Sat by Pulse 100 98 Oximetry 05/29/17 05/29/17 05/29/17 09:04 09:05 09:06 Temperature Pulse Rate 103 H 105 H 104 H Respiratory Rate Blood Pressure 102/75 86/63 92/65 O2 Sat by Pulse Oximetry 05/29/17 05/29/17 05/29/17 09:07 09:08 12:01 Temperature 97.9 F Pulse Rate 104 H 103 H 101 H Respiratory 20 Rate Blood Pressure 110/77 119/68 124/79 O2 Sat by Pulse 98 Oximetry 05/29/17 05/29/17 12:03 12:07 Temperature Pulse Rate 100 H Respiratory 20 Rate Blood Pressure 124/79 O2 Sat by Pulse Oximetry General appearance: Present: no acute distress, well-nourished - EENT Eyes: PERRL, EOM intact ENT: hearing intact, clear oral mucosa Ears: bilateral: normal - Neck Neck: supple, normal ROM - Respiratory Respiratory effort: normal Respiratory: bilateral: CTA - Breasts Breasts: normal - Cardiovascular Heart rate: 80 Rhythm: regular Heart Sounds: Present: S1 & S2. Absent: gallop, rub Extremities: pulses intact, No edema, normal color, Full ROM - Gastrointestinal General gastrointestinal: Present: soft, non-tender, non-distended, normal bowel sounds - Genitourinary Female genitourinary: normal - Integumentary Integumentary: clear, warm, dry - Musculoskeletal Musculoskeletal: 1, strength equal bilaterally - Neurologic Neurologic: moves all extremities - Psychiatric Psychiatric: memory intact, appropriate mood/affect, intact judgment & insight - Labs CBC & Chem 7: 05/30/17 05:53 05/30/17 05:53 Labs: Abnormal lab results 05/28/17 05/28/17 05/28/17 Range/Units 16:40 17:45 21:25 POC Glucose 236 H 163 H 114 H (70-105) Hemoglobin A1c (4-6) % 05/29/17 05/29/17 Range/Units 06:06 12:05 POC Glucose 261 H (70-105) Hemoglobin A1c 9.2 H (4-6) %
[2017-05-29] MEDS: PRAVACHOL PO SCH (22:27)
[2017-05-30] MEDS: DILAUDID IV PRN ×4 (00:41→19:56)
--- NOTE | 2017-05-30 00:53 | Treadmill Report ---
NUCLEAR PERFUSION SCAN REFERRING PHYSICIAN: Hospitalist service. PROTOCOL: The patient was brought to the stress lab in a postoperative state, given 10 mCi of technetium 99m at rest. The patient underwent rest imaging. The patient underwent Lexiscan stress test. At peak stress, the patient was given 26 mCi. Shortly thereafter, the patient underwent stress imaging. Raw imaging reveals mild GI artifact. No significant motion artifact. SPECT imaging examined carefully in horizontal long axis, vertical long axis, short axis views. There is normal homogenous uptake of radioisotope in all reported segments. No evidence of a significant fixed or reversible perfusion defects suggestive of prior infarction or ischemia. Gated wall motion reveals normal systolic thickening. Ejection fraction of 56%. No TID. CONCLUSIONS: 1. Normal myocardial perfusion scan without evidence of active ischemia or prior infarction. 2. Normal left ventricular systolic performance without evidence of transient ischemic dilatation or stress-induced segmental wall motion abnormalities. JOB# [id number]
[2017-05-30] MEDS: HEPARIN SUB-Q SCH ×3 (05:50→23:13)
[2017-05-30 06:15] LABS: Basophils % (Auto) 0.5 % (0.0-1.8); Eosinophils % (Auto) 7.1 % (0.0-4.3); Hemoglobin 10.9 gm/dl (10.1-14.3); Mean Corpuscular HGB Conc 32 % (30-34); Mean Corpuscular Hemoglobin 27 pg (28-32); Mean Corpuscular Volume 83 fl (79-97); Platelet Count 234 K/mm3 (140-440); Red Cell Distribution Width 15.8 % (13.2-15.2); White Blood Count 5.1 K/mm3 (4.5-11.0)
[2017-05-30 06:38] LABS: Alanine Aminotransferase 11 units/L (7-56); Albumin 3.6 g/dL (3.9-5); Albumin/Globulin Ratio 1.2 %; Alkaline Phosphatase 74 units/L (35-129); Anion Gap 19 mmol/L; BUN/Creatinine Ratio 20; Blood Urea Nitrogen 14 mg/dL (7-17); Calcium 8.4 mg/dL (8.4-10.2); Carbon Dioxide 22 mmol/L (22-30); Chloride 101.1 mmol/L (98-107); Glucose 208 mg/dL (65-100); Potassium 4.3 mmol/L (3.6-5.0); Sodium 138 mmol/L (137-145); Total Protein 6.7 g/dL (6.3-8.2)
[2017-05-30] MEDS: NOVOLOG SUB-Q SCH ×3 (07:30→23:11)
[2017-05-30] MEDS: CEPHULAC PO SCH ×2 (09:43→09:55)
[2017-05-30] MEDS: TRADJENTA PO SCH (09:43)
[2017-05-30] MEDS: PHENERGAN PO SCH ×2 (09:43→23:12)
[2017-05-30] MEDS: AMARYL PO SCH (09:43)
[2017-05-30] MEDS: TOPROL XL PO SCH (09:45)
[2017-05-30] MEDS: GLUCOPHAGE PO SCH ×2 (09:45→23:12)
--- NOTE | 2017-05-30 15:01 | Discharge Summary ---
<CRISTINA CHILD - Last Filed: 05/31/17 14:52> Providers - Providers Date of Admission: 05/28/17 14:52 Date of discharge: 05/31/17 Attending physician: CHRISTEN IGLESIAS MD 05/28/17 18:30 Consult to Dietitian/Nutrition [CONS] Routine Physician Instructions: Reason For Exam: Reason for Consult: Diet education 05/28/17 21:08 Consult to Physician [CONS] Routine Consulting Provider: KARTHIKEYAN RODRIGUEZ Reason For Exam: SVT Place consult to:: service Notified:: esther Primary care physician: STEAM OVEN OPERATOR Hospitalization Condition: Stable Hospital course: This is a 56 year-old female who presented to the emergency department via EMS from home with complaint of some chest pain with radiation to the right shoulder, some shortness of breath, and some "heavy legs" that has been going on for the past 3 days but has been getting progressively worse. She has a history of atrial fibrillation with previous ablation, hyperlipidemia , [id number] diabetes. She did not take anything for her symptoms prior to presentation. Her personal fitness manager is through [facility] and her primary care physician is Dr. Ovalle. She denies any tobacco or illicit drug use or abuse. No recent travel or sick contacts at home. Chest X-ray was unremarkable. Exercise Stress test revealed EF of 56 with normal perfusion and no evidence of active ischemia or prior infarct. Patient was treated with antiarrhythmics, Beta blockers and resumed home medications. Imdur was discontinued. Discharge Diagnosis Chest pain SVT (supraventricular tachycardia) Diabetes mellitus, type 2 HTN (hypertension) Disposition: TO HOME OR SELFCARE Core Measure Documentation - Palliative Care Palliative Care/ Comfort Measures: Not Applicable - Core Measures Any of the following diagnoses?: none Exam - Constitutional Vitals: Temp Pulse Resp BP Pulse Ox 98.5 F 87 18 93/62 97 05/30/17 08:25 05/30/17 09:45 05/30/17 13:14 05/30/17 09:45 05/30/17 08:25 General appearance: Present: no acute distress, well-nourished - EENT Eyes: Present: PERRL ENT: hearing intact, clear oral mucosa - Neck Neck: Present: supple, normal ROM - Respiratory Respiratory effort: normal Respiratory: bilateral: CTA - Cardiovascular Heart Sounds: Present: S1 & S2. Absent: rub, click - Extremities Extremities: pulses symmetrical, No edema Peripheral Pulses: within normal limits - Abdominal General gastrointestinal: Present: soft, non-tender, non-distended, normal bowel sounds Female genitourinary: Present: deferred - Rectal Rectal Exam: deferred - Integumentary Integumentary: Present: clear, warm, dry - Musculoskeletal Musculoskeletal: gait normal, strength equal bilaterally - Psychiatric Psychiatric: appropriate mood/affect, intact judgment & insight - Neurologic Neurologic: CNII-XII intact, moves all extremities - Allied Health Allied health notes reviewed: nursing Plan Activity: fall precautions Weight Bearing Status: Full Weight Bearing Diet: low fat, low cholesterol, low salt, diabetic Follow up with: [facility] [Provider Group] - 7 Days IRISH BEAVERS MD [Staff Physician] - 7 Days PRIMARY CAREMD [Primary Care Provider] - 3-5 Days Prescriptions: HYDROcodone/APAP 5-325 [Curran 5/325] 1 each PO Q6HR PRN #12 tablet PRN Reason: Pain Metoclopramide HCl [Reglan TAB] 5 mg PO TIDAC #20 tablet Metoprolol Xl [Metoprolol SUCCINATE ER TAB] 75 mg PO QDAY #30 tablet <CHRISTEN IGLESIAS - Last Filed: 05/31/17 15:29> Providers - Providers Date of Admission: 05/28/17 14:52 Attending physician: CHRISTEN IGLESIAS MD 05/28/17 18:30 Consult to Dietitian/Nutrition [CONS] Routine Physician Instructions: Reason For Exam: Reason for Consult: Diet education 05/28/17 21:08 Consult to Physician [CONS] Routine Consulting Provider: KARTHIKEYAN RODRIGUEZ Reason For Exam: SVT Place consult to:: service Notified:: esther Primary care physician: STEAM OVEN OPERATOR Hospitalization Pertinent studies: Cardiac stress test negative for ischemia Hospital course: Patient was hemodynamically stable at the time of discharge, patient's medications were reviewed and updated at the time of discharge. Patient's questions and concerns were addressed at the bedside. Patient is scheduled to see [facility] on 06/05/17. - Discharge Diagnoses (1) Angina at rest Status: Acute (2) Diabetes Status: Acute (3) GERD (gastroesophageal reflux disease) Status: Acute (4) SVT (supraventricular tachycardia) Status: Acute (5) HTN (hypertension) Status: Chronic Qualifiers: Hypertension type: essential hypertension Qualified Code(s): I10 - Essential (primary) hypertension (6) Hyperlipidemia Status: Chronic Core Measure Documentation - Palliative Care Palliative Care/ Comfort Measures: Not Applicable - Core Measures Any of the following diagnoses?: none Exam - Physical Exam Narrative exam: Not in cardiopulmonary distress. The patient is obese. Vital signs as documented. Head exam is unremarkable. No scleral icterus . Neck is without jugular venous distension, thyromegaly, or carotid bruits. Lungs are clear to auscultation. Cardiac exam reveals regular rate and Rhythm. First and second heart sounds normal. No murmurs, rubs or gallops. Abdominal exam reveals normal bowel sounds, no masses, no organomegaly and no aortic enlargement. Extremities are nonedematous and both femoral and pedal pulses are normal. PRINTING SCREEN ASSEMBLER: Alert and oriented 3. No focal weakness. - Constitutional Vitals: Temp Pulse Resp BP Pulse Ox 98.4 F 99 H 20 100/78 92 05/31/17 04:19 05/31/17 04:20 05/31/17 04:19 05/31/17 04:19 05/31/17 04:20 Plan Activity: no restrictions Weight Bearing Status: Full Weight Bearing Diet: low fat, low cholesterol, low salt, diabetic
[2017-05-30] MEDS: ZOFRAN IV PRN (21:33)
[2017-05-30] MEDS: PRAVACHOL PO SCH (23:12)
[2017-05-31] MEDS: ZOFRAN IV PRN (02:58)
[2017-05-31] MEDS: DILAUDID IV PRN ×2 (02:58→07:52)
[2017-05-31] MEDS: HEPARIN SUB-Q SCH (06:31)
[2017-05-31] MEDS: NOVOLOG SUB-Q SCH ×2 (07:56→07:57)
[2017-05-31] MEDS: TOPROL XL PO SCH (09:05)
[2017-05-31] MEDS: CEPHULAC PO SCH ×2 (09:05→09:14)
[2017-05-31] MEDS: PHENERGAN PO SCH (09:05)
[2017-05-31] MEDS: TRADJENTA PO SCH (09:06)
[2017-05-31] MEDS: GLUCOPHAGE PO SCH (09:06)
[2017-05-31] MEDS: AMARYL PO SCH (09:06)
--- NOTE | 2017-05-31 09:20 | Event Note ---
Date: 05/31/17 Patient was discharged yesterday and she didn't go home. The reason I was told is the patient didn't want to go home before she was seen by a doctor. Me and the PA(Agustina) examined and evaluated the patient and told her she will be discharged and she agreed with the plan. I didn't get any call about the issue.
--- NOTE | 2017-05-31 11:09 | Query- Chest Pain ---
Danis Adams____Micaela Date: 05/31/17 Geospatial Systems Integrator/CDS:____Rohit Phone#:____[phone] Exercise your independent professional judgment when responding to query. Questions asked do not imply a particular answer is desired or expected. We greatly appreciate your clarification on this issue. Clinical Documentation States: 56 year old female was admitted on 05/29/17 The Progress note (Dr. Hinojosa 05/29/17) states " - Patient Problems (1) Chest pain, rule out acute myocardial infarction (2) SVT (supraventricular tachycardia) " The cardiology consult note (Dr. 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 KIRA
[2017-05-31 11:17] VITALS: BP 91/55
--- NOTE | 2017-05-31 11:26 | Progress Note ---
<CRISTINA CHILD - Last Filed: 05/31/17 11:30> Assessment and Plan Assessment and plan: Assessment and Plan Chest pain, rule out acute myocardial infarction Stress test negative SVT (supraventricular tachycardia) Resolved.Metoprolol increased to 75 Diabetes mellitus, type 2 Uncontrolled Added Glimepride 2 mg po qd and tradjenta 5 mg po qd Patient reluctant to be started on Basal insulin. Follow up with pcp for adjustment of Diabetes medicines HTN (hypertension) Cont antihypertensives DVT prophylaxis On Lovenox History Interval history: Patient is awake and sitting in bed. Patient denies CP, SOB, dizziness. She has some intermittent palpitations. Hospitalist Physical - Constitutional Vitals: Temp Pulse Resp BP Pulse Ox 98.5 F 104 H 20 91/55 94 05/31/17 11:16 05/31/17 11:16 05/31/17 11:16 05/31/17 11:16 05/31/17 11:16 General appearance: Present: no acute distress, well-nourished - EENT Eyes: Present: PERRL, EOM intact ENT: hearing intact, clear oral mucosa, dentition normal - Neck Neck: Present: supple, normal ROM - Respiratory Respiratory effort: normal Respiratory: bilateral: CTA - Cardiovascular Rhythm: regular Heart Sounds: Present: S1 & S2, gallop - Extremities Extremities: no ischemia, pulses intact, No edema Peripheral Pulses: within normal limits - Abdominal General gastrointestinal: soft, non-tender, non-distended - Integumentary Integumentary: Present: clear, warm, dry - Psychiatric Psychiatric: appropriate mood/affect, intact judgment & insight, memory intact, cooperative - Neurologic Neurologic: CNII-XII intact, moves all extremities - Allied Health Allied health notes reviewed: nursing Results - Labs CBC & Chem 7: 05/30/17 05:53 05/30/17 05:53 Labs: Laboratory Last Values WBC 5.1 K/mm3 (4.5-11.0) 05/30/17 05:53 RBC 4.10 M/mm3 (3.65-5.03) 05/30/17 05:53 Hgb 10.9 gm/dl (10.1-14.3) 05/30/17 05:53 Hct 34.0 % (30.3-42.9) 05/30/17 05:53 MCV 83 fl (79-97) 05/30/17 05:53 MCH 27 pg (28-32) L 05/30/17 05:53 MCHC 32 % (30-34) 05/30/17 05:53 RDW 15.8 % (13.2-15.2) H 05/30/17 05:53 Plt Count 234 K/mm3 (140-440) 05/30/17 05:53 Lymph % (Auto) 29.0 % (13.4-35.0) 05/30/17 05:53 [place] % (Auto) 7.5 % (0.0-7.3) H 05/30/17 05:53 Eos % (Auto) 7.1 % (0.0-4.3) H 05/30/17 05:53 Baso % (Auto) 0.5 % (0.0-1.8) 05/30/17 05:53 Lymph # 1.5 K/mm3 (1.2-5.4) 05/30/17 05:53 [place] # 0.4 K/mm3 (0.0-0.8) 05/30/17 05:53 Eos # 0.4 K/mm3 (0.0-0.4) 05/30/17 05:53 Baso # 0.0 K/mm3 (0.0-0.1) 05/30/17 05:53 Seg Neutrophils % 55.9 % (40.0-70.0) 05/30/17 05:53 Seg Neutrophils # 2.9 K/mm3 (1.8-7.7) 05/30/17 05:53 PT 12.9 Sec. (12.2-14.9) 05/28/17 12:47 INR 0.93 (0.87-1.13) 05/28/17 12:47 APTT 31.6 Sec. (24.2-36.6) 05/28/17 12:47 D-Dimer 215.42 ng/mlDDU (0-234) 05/28/17 12:47 VBG pH 7.321 (7.320-7.420) 05/28/17 14:06 Sodium 138 mmol/L (137-145) 05/30/17 05:53 Potassium 4.3 mmol/L (3.6-5.0) 05/30/17 05:53 Chloride 101.1 mmol/L (98-107) 05/30/17 05:53 Carbon Dioxide 22 mmol/L (22-30) 05/30/17 05:53 Anion Gap 19 mmol/L 05/30/17 05:53 BUN 14 mg/dL (7-17) 05/30/17 05:53 Creatinine 0.7 mg/dL (0.7-1.2) 05/30/17 05:53 Estimated GFR > 60 ml/min 05/30/17 05:53 BUN/Creatinine Ratio 20 % 05/30/17 05:53 Glucose 208 mg/dL (65-100) H 05/30/17 05:53 POC Glucose 125 (70-105) H 05/31/17 07:47 Hemoglobin A1c 9.2 % (4-6) H 05/29/17 06:06 Calcium 8.4 mg/dL (8.4-10.2) 05/30/17 05:53 Magnesium 2.10 mg/dL (1.7-2.3) 05/29/17 14:05 Total Bilirubin 0.20 mg/dL (0.1-1.2) 05/30/17 05:53 AST 15 units/L (5-40) 05/30/17 05:53 ALT 11 units/L (7-56) 05/30/17 05:53 Alkaline Phosphatase 74 units/L (35-129) 05/30/17 05:53 Troponin T < 0.010 ng/mL (0.00-0.029) 05/28/17 19:55 Total Protein 6.7 g/dL (6.3-8.2) 05/30/17 05:53 Albumin 3.6 g/dL (3.9-5) L 05/30/17 05:53 Albumin/Globulin Ratio 1.2 % 05/30/17 05:53 TSH 4.060 mlU/mL (0.270-4.200) 05/29/17 14:05 Free T4 1.05 ng/dL (0.76-1.46) 05/29/17 14:05 <CHRISTEN IGLESIAS M - Last Filed: 05/31/17 15:35> Assessment and Plan Assessment and plan: I saw and evaluated the patient. I agree with the findings and the plan of care as documented in the PA's note. Disposition Plan: to discharge home - Patient Problems (1) Angina at rest Status: Acute (2) Diabetes Status: Acute (3) GERD (gastroesophageal reflux disease) Status: Acute (4) SVT (supraventricular tachycardia) Status: Acute (5) HTN (hypertension) Status: Chronic Qualifiers: Hypertension type: essential hypertension Qualified Code(s): I10 - Essential (primary) hypertension (6) Hyperlipidemia Status: Chronic Hospitalist Physical - Physical exam Narrative exam: Not in cardiopulmonary distress. The patient is obese. Vital signs as documented. Head exam is unremarkable. No scleral icterus . Neck is without jugular venous distension, thyromegaly, or carotid bruits. Lungs are clear to auscultation. Cardiac exam reveals regular rate and Rhythm. First and second heart sounds normal. No murmurs, rubs or gallops. Abdominal exam reveals normal bowel sounds, no masses, no organomegaly and no aortic enlargement. Extremities are nonedematous and both femoral and pedal pulses are normal. STREET [employer]: Alert and oriented 3. No focal weakness. - Constitutional Vitals: Temp Pulse Resp BP Pulse Ox 98.5 F 104 H 20 91/55 94 05/31/17 11:16 05/31/17 11:16 05/31/17 11:16 05/31/17 11:16 05/31/17 11:16 Results - Labs CBC & Chem 7: 05/30/17 05:53 05/30/17 05:53 Labs: Laboratory Last Values WBC 5.1 K/mm3 (4.5-11.0) 05/30/17 05:53 RBC 4.10 M/mm3 (3.65-5.03) 05/30/17 05:53 Hgb 10.9 gm/dl (10.1-14.3) 05/30/17 05:53 Hct 34.0 % (30.3-42.9) 05/30/17 05:53 MCV 83 fl (79-97) 05/30/17 05:53 MCH 27 pg (28-32) L 05/30/17 05:53 MCHC 32 % (30-34) 05/30/17 05:53 RDW 15.8 % (13.2-15.2) H 05/30/17 05:53 Plt Count 234 K/mm3 (140-440) 05/30/17 05:53 Lymph % (Auto) 29.0 % (13.4-35.0) 05/30/17 05:53 [place] % (Auto) 7.5 % (0.0-7.3) H 05/30/17 05:53 Eos % (Auto) 7.1 % (0.0-4.3) H 05/30/17 05:53 Baso % (Auto) 0.5 % (0.0-1.8) 05/30/17 05:53 Lymph # 1.5 K/mm3 (1.2-5.4) 05/30/17 05:53 [place] # 0.4 K/mm3 (0.0-0.8) 05/30/17 05:53 Eos # 0.4 K/mm3 (0.0-0.4) 05/30/17 05:53 Baso # 0.0 K/mm3 (0.0-0.1) 05/30/17 05:53 Seg Neutrophils % 55.9 % (40.0-70.0) 05/30/17 05:53 Seg Neutrophils # 2.9 K/mm3 (1.8-7.7) 05/30/17 05:53 PT 12.9 Sec. (12.2-14.9) 05/28/17 12:47 INR 0.93 (0.87-1.13) 05/28/17 12:47 APTT 31.6 Sec. (24.2-36.6) 05/28/17 12:47 D-Dimer 215.42 ng/mlDDU (0-234) 05/28/17 12:47 VBG pH 7.321 (7.320-7.420) 05/28/17 14:06 Sodium 138 mmol/L (137-145) 05/30/17 05:53 Potassium 4.3 mmol/L (3.6-5.0) 05/30/17 05:53 Chloride 101.1 mmol/L (98-107) 05/30/17 05:53 Carbon Dioxide 22 mmol/L (22-30) 05/30/17 05:53 Anion Gap 19 mmol/L 05/30/17 05:53 BUN 14 mg/dL (7-17) 05/30/17 05:53 Creatinine 0.7 mg/dL (0.7-1.2) 05/30/17 05:53 Estimated GFR > 60 ml/min 05/30/17 05:53 BUN/Creatinine Ratio 20 % 05/30/17 05:53 Glucose 208 mg/dL (65-100) H 05/30/17 05:53 POC Glucose 125 (70-105) H 05/31/17 07:47 Hemoglobin A1c 9.2 % (4-6) H 05/29/17 06:06 Calcium 8.4 mg/dL (8.4-10.2) 05/30/17 05:53 Magnesium 2.10 mg/dL (1.7-2.3) 05/29/17 14:05 Total Bilirubin 0.20 mg/dL (0.1-1.2) 05/30/17 05:53 AST 15 units/L (5-40) 05/30/17 05:53 ALT 11 units/L (7-56) 05/30/17 05:53 Alkaline Phosphatase 74 units/L (35-129) 05/30/17 05:53 Troponin T < 0.010 ng/mL (0.00-0.029) 05/28/17 19:55 Total Protein 6.7 g/dL (6.3-8.2) 05/30/17 05:53 Albumin 3.6 g/dL (3.9-5) L 05/30/17 05:53 Albumin/Globulin Ratio 1.2 % 05/30/17 05:53 TSH 4.060 mlU/mL (0.270-4.200) 05/29/17 14:05 Free T4 1.05 ng/dL (0.76-1.46) 05/29/17 14:05
== END 2017-05-31 11:30 | disposition home or self-care (01) | DRG 310 ==
LOC: ED 11:57 → 4A 14:52
PROVIDERS: ADMIT Internal Medicine; ATTEND Internal Medicine
DX: I47.1 Supraventricular tachycardia (principal); I48.91 Unspecified atrial fibrillation; M19.90 Unspecified osteoarthritis, unspecified site; E78.00 Pure hypercholesterolemia, unspecified; Z96.651 Presence of right artificial knee joint; F41.1 Generalized anxiety disorder; E11.65 Type 2 diabetes mellitus with hyperglycemia; Z88.5 Allergy status to narcotic agent; Z82.49 Family history of ischemic heart disease and other diseases of the circulatory system; Z90.710 Acquired absence of both cervix and uterus; Z79.899 Other long term (current) drug therapy
CPT/HCPCS: 36415; 71010; 78452; 80053; 82805; 82962; 83036; 83735; 84439; 84443; 84484; 85025; 85379; 85610; 85730; 93005; 93010; 93017; 96361; 96374; 96375; 99285; A9270-GY; A9502; J0153; J1170; J1644; J1815; J2405; J2765; J2785; J3010; J7030; Q0169

== ENCOUNTER 2017-06-02 16:12 | Emergency (ER) | payer MEDICARE ==
[2017-06-02 16:34] VITALS: BP 142/86
[2017-06-02] MEDS ORDERED: LIDOCAINE VISCOUS 2% PO ONE (17:14)
[2017-06-02] MEDS ORDERED: TYLENOL PO ONE (17:14)
--- NOTE | 2017-06-02 17:31 | Emergency Department Report ---
ED ENT HPI - General Chief complaint: Sore Throat Stated complaint: ABD PAIN,HEADACHE Time Seen by Provider: 06/02/17 17:04 Source: patient Mode of arrival: Ambulatory Limitations: No Limitations - History of Present Illness Initial comments: This is a 56-year-old female nontoxic, well nourished in appearance, no acute signs of distress presents to the ED with c/o of sore throat, bialteral shoulder and neck pain x1 day. Patient stated she was in a restaurant earlier today and was eating mashed carrots with raisins and after she swallowed she started to choke and cough. Patient then stated that her friend started to perform a hiemlich maneuver the a daryl came out. Patient stated ever since then she developed sore throat and bilateral shoulders and neck pain from the hiemlich maneuver. Patient denies any chest pain, shortness of breathe, fever, chills, headache, nausea, vomiting, headache, stiff neck, numbness, tingling. Patient states allergies to Codeine. PMH includes a-fib, arthritis, diabetes, hypertension, anxiety, and cardiac ablation. MD complaint: sore throat -: This afternoon Location: throat Severity: mild Severity scale (0 -10): 8 Quality: aching Consistency: constant Improves with: none Worsens with: swallowing Associated Symptoms: pain with swallowing, sore throat. denies: fever, cough, gum swelling, toothache, tinnitus, hearing loss, discharge from ear, rhinorrhea - Related Data Home Medications Medication Instructions Recorded Confirmed Last Taken metFORMIN [Glucophage] 1,000 mg PO BID 06/18/13 05/28/17 05/27/17 Cyclobenzaprine [Flexeril 10 MG 10 mg PO TID PRN 05/28/17 05/28/17 05/27/17 TAB] Simvastatin [Zocor TAB] 20 mg PO QHS 05/28/17 05/28/17 05/27/17 clonazePAM [KlonoPIN] 2 mg PO QPM 05/28/17 05/28/17 05/27/17 clonazePAM [Klonopin] 1 mg PO QAM 05/28/17 05/28/17 05/27/17 Previous Rx's Medication Instructions Recorded Last Taken Type Metoprolol Xl [Metoprolol 75 mg PO QDAY #30 tablet 05/30/17 Unknown Rx SUCCINATE ER TAB] HYDROcodone/APAP 5-325 [[place] 1 each PO Q6HR PRN #12 tablet 05/31/17 Unknown Rx 5/325] Metoclopramide HCl [Reglan TAB] 5 mg PO TIDAC #20 tablet 05/31/17 Unknown Rx Cyclobenzaprine HCl [Flexeril 5 MG 5 mg PO BID #10 tab 06/02/17 Unknown Rx TAB] Ibuprofen [Motrin] 600 mg PO Q8H PRN #30 tablet 06/02/17 Unknown Rx Nystas/Diphen/Xyl Visc/Mylanta 15 ml MM Q8H PRN 10 Days udc 06/02/17 Unknown Rx [Magic Mouthwash] Allergies Allergy/AdvReac Type Severity Reaction Status Date / Time codeine AdvReac Mild Nausea Verified 05/28/17 12:08 ED Dental HPI - General Chief complaint: Sore Throat Stated complaint: ABD PAIN,HEADACHE Time Seen by Provider: 06/02/17 17:04 Source: patient Mode of arrival: Ambulatory Limitations: No Limitations - Related Data Home Medications Medication Instructions Recorded Confirmed Last Taken metFORMIN [Glucophage] 1,000 mg PO BID 06/18/13 05/28/17 05/27/17 Cyclobenzaprine [Flexeril 10 MG 10 mg PO TID PRN 05/28/17 05/28/17 05/27/17 TAB] Simvastatin [Zocor TAB] 20 mg PO QHS 05/28/17 05/28/17 05/27/17 clonazePAM [KlonoPIN] 2 mg PO QPM 05/28/17 05/28/17 05/27/17 clonazePAM [Klonopin] 1 mg PO QAM 05/28/17 05/28/17 05/27/17 Previous Rx's Medication Instructions Recorded Last Taken Type Metoprolol Xl [Metoprolol 75 mg PO QDAY #30 tablet 05/30/17 Unknown Rx SUCCINATE ER TAB] HYDROcodone/APAP 5-325 [[place] 1 each PO Q6HR PRN #12 tablet 05/31/17 Unknown Rx 5/325] Metoclopramide HCl [Reglan TAB] 5 mg PO TIDAC #20 tablet 05/31/17 Unknown Rx Cyclobenzaprine HCl [Flexeril 5 MG 5 mg PO BID #10 tab 06/02/17 Unknown Rx TAB] Ibuprofen [Motrin] 600 mg PO Q8H PRN #30 tablet 06/02/17 Unknown Rx Nystas/Diphen/Xyl Visc/Mylanta 15 ml MM Q8H PRN 10 Days udc 06/02/17 Unknown Rx [Magic Mouthwash] Allergies Allergy/AdvReac Type Severity Reaction Status Date / Time codeine AdvReac Mild Nausea Verified 05/28/17 12:08 ED Review of Systems ROS: Stated complaint: ABD PAIN,HEADACHE Other details as noted in HPI Constitutional: denies: chills, fever Eyes: denies: eye pain, eye discharge, vision change ENT: throat pain. denies: ear pain Respiratory: denies: cough, shortness of breath, wheezing Cardiovascular: denies: chest pain, palpitations Endocrine: no symptoms reported Gastrointestinal: denies: abdominal pain, nausea, diarrhea Genitourinary: denies: urgency, dysuria, discharge Musculoskeletal: back pain, arthralgia. denies: joint swelling Skin: denies: rash, lesions Neurological: denies: headache, weakness, paresthesias Psychiatric: denies: anxiety, depression Hematological/Lymphatic: denies: easy bleeding, easy bruising ED Past Medical Hx - Past Medical History Previous Medical History?: Yes Hx Hypertension: Yes Hx Congestive Heart Failure: No Hx Diabetes: Yes Hx Liver Disease: No Hx Renal Disease: No Hx Sickle Cell Disease: No Hx Arthritis: Yes Hx Seizures: No Hx Psychiatric Treatment: Yes (anxiety) Hx Asthma: No Hx COPD: No Hx Dementia: No Hx HIV: No Additional medical history: A fib. High cholesterol - Surgical History Past Surgical History?: Yes Additional Surgical History: cardiac ablation. c section x 3, hysterectomy. right knee replacment 06/13 - Social History Smoking Status: Never Smoker Substance Use Type: None - Medications Home Medications: Home Medications Medication Instructions Recorded Confirmed Last Taken Type metFORMIN [Glucophage] 1,000 mg PO BID 06/18/13 05/28/17 05/27/17 History Cyclobenzaprine [Flexeril 10 MG 10 mg PO TID PRN 05/28/17 05/28/17 05/27/17 History TAB] Simvastatin [Zocor TAB] 20 mg PO QHS 05/28/17 05/28/17 05/27/17 History clonazePAM [KlonoPIN] 2 mg PO QPM 05/28/17 05/28/17 05/27/17 History clonazePAM [Klonopin] 1 mg PO QAM 05/28/17 05/28/17 05/27/17 History Metoprolol Xl [Metoprolol 75 mg PO QDAY #30 tablet 05/30/17 Unknown Rx SUCCINATE ER TAB] HYDROcodone/APAP 5-325 [[place] 1 each PO Q6HR PRN #12 tablet 05/31/17 Unknown Rx 5/325] Metoclopramide HCl [Reglan TAB] 5 mg PO TIDAC #20 tablet 05/31/17 Unknown Rx Cyclobenzaprine HCl [Flexeril 5 MG 5 mg PO BID #10 tab 06/02/17 Unknown Rx TAB] Ibuprofen [Motrin] 600 mg PO Q8H PRN #30 tablet 06/02/17 Unknown Rx Nystas/Diphen/Xyl Visc/Mylanta 15 ml MM Q8H PRN 10 Days udc 06/02/17 Unknown Rx [Magic Mouthwash] ED Physical Exam - General Limitations: No Limitations General appearance: alert, in no apparent distress - Head Head exam: Present: atraumatic, normocephalic, normal inspection - Eye Eye exam: Present: normal appearance, PERRL, EOMI. Absent: scleral icterus, conjunctival injection, nystagmus, periorbital swelling, periorbital tenderness Pupils: Present: normal accommodation - ENT ENT exam: Present: mucous membranes moist, TM's normal bilaterally, normal external ear exam - Expanded ENT Exam Expanded Ear exam: Present: normal external inspection Mouth exam: Present: normal external inspection. Absent: drooling, trismus, muffled voice, tongue normal, tongue elevation, laceration Teeth exam: Present: normal inspection Throat exam: Positive: tonsillar erythema, other (no foreign body noted. No abscess or swelling noted. ). Negative: tonsillomegaly, tonsillar exudate, R peritonsillar mass, L peritonsillar mass - Neck Neck exam: Present: normal inspection, full ROM. Absent: tenderness, meningismus, lymphadenopathy, thyromegaly - Respiratory Respiratory exam: Present: normal lung sounds bilaterally. Absent: respiratory distress, wheezes, rales, rhonchi, stridor, chest wall tenderness, accessory muscle use, decreased breath sounds, prolonged expiratory - Cardiovascular Cardiovascular Exam: Present: regular rate, normal rhythm, normal heart sounds. Absent: irregular rhythm, systolic murmur, diastolic murmur, rubs, gallop - GI/Abdominal GI/Abdominal exam: Present: soft, normal bowel sounds. Absent: distended, tenderness, guarding, rebound, rigid, diminished bowel sounds - Rectal Rectal exam: Present: deferred - Extremities Exam Extremities exam: Present: normal inspection, full ROM, normal capillary refill. Absent: tenderness, pedal edema, joint swelling, calf tenderness - Back Exam Back exam: Present: normal inspection, full ROM, paraspinal tenderness ( cervical region). Absent: tenderness, CVA tenderness (R), CVA tenderness (L), muscle spasm, vertebral tenderness, rash noted - Neurological Exam Neurological exam: Present: alert, oriented X3, CN II-XII intact, normal gait, reflexes normal - Psychiatric Psychiatric exam: Present: normal affect, normal mood - Skin Skin exam: Present: warm, dry, intact, normal color. Absent: rash ED Course Vital Signs 06/02/17 16:30 Temperature 98 F Pulse Rate 92 H Respiratory 16 Rate Blood Pressure 142/86 O2 Sat by Pulse 100 Oximetry - Reevaluation(s) Reevaluation #1: 06/02/17 17:33 Patient is speaking in full sentences with no signs of distress noted. ED Medical Decision Making - Medical Decision Making This is a 56-year-old female that presents with sore throat and roberto shoulder/ neck pain. PAtient is stable and was examined by me. Xray of neck soft tissue and abd obtained and dictated by radiologist with normal exam. Due to patients cardiac history, EKG obtained within normal limits for the patient. Patient has been notified of xray results with no further questions noted by the patient. Patient received Lidocaine viscus and Tylenol in the ED which patient stated symptoms are improving and subsiding. Patient is d/c with Flexeril and Motrin. Patient was instructed to Follow-up with a primary care doctor in 3-5 days or if symptoms worsen and continue return to emergency room as soon as possible. At time time of discharge, the patient does not seem toxic or ill in appearance. No acute signs of distress noted. Patient agrees to discharge treatment plan of care. No further questions noted by the patient. Critical care attestation.: If time is entered above; I have spent that time in minutes in the direct care of this critically ill patient, excluding procedure time. ED Disposition Clinical Impression: Sore throat, Cervical muscle pain Bilateral shoulder pain Qualifiers: Chronicity: acute Qualified Code(s): M25.511 - Pain in right shoulder Disposition: - TO HOME OR SELFCARE Is pt being admited?: No Does the pt Need Aspirin: No Condition: Stable Additional Instructions: Follow-up with a primary care doctor in 3-5 days or if symptoms worsen and continue return to emergency room as soon as possible. Prescriptions: Cyclobenzaprine HCl [Flexeril 5 MG TAB] 5 mg PO BID #10 tab Ibuprofen [Motrin] 600 mg PO Q8H PRN #30 tablet PRN Reason: Pain Nystas/Diphen/Xyl Visc/Mylanta [Magic Mouthwash] 15 ml MM Q8H PRN 10 Days udc PRN Reason: Sore Throat Referrals: PRIMARY CARE, [Primary Care Provider] - 3-5 Days SELINA ALVAREZ MD [Staff Physician] - 3-5 Days [facility] [Outside] - 3-5 Days [facility] [Outside] - 3-5 Days Forms: Work/School Release Form(ED)
--- NOTE | 2017-06-02 19:37 | XRay Report ---
FINAL REPORT EXAM: XR ABDOMEN 1V AP HISTORY: ab pain with foreign body r/o daryl TECHNIQUE: Supine view of the abdomen Comparison: None FINDINGS: There is scattered stool and bowel gas in a nonobstructive pattern with air in the rectum. There is no radiopaque foreign body identified to suggest a choline. There are no suspicious calcifications. There is mild lower lumbar degenerative spondylosis. IMPRESSION: Scattered stool and air in a nonobstructed pattern. No daryl is identified.
--- NOTE | 2017-06-02 19:43 | XRay Report ---
FINAL REPORT EXAM: XR NECK SOFT TISSUE HISTORY: sore throat s/p foreign body daryl TECHNIQUE: Two views of the neck Comparison: None FINDINGS: There is no radiopaque foreign body. The prevertebral soft tissues are normal. The epiglottis is normal. The soft palate and adenoids are normal. There is minimal degenerative spondylosis of the lower cervical spine. There is no subglottic steepling. The imaged lung apices are clear. There is artifact projecting from the patient's hair. IMPRESSION: No coin or retained radiopaque foreign body identified.
== END 2017-06-02 20:00 | disposition home or self-care (01) ==
LOC: ED 16:12
DX: J02.9 Acute pharyngitis, unspecified (principal); M25.511 Pain in right shoulder; M25.512 Pain in left shoulder; M54.2 Cervicalgia; I10 Essential (primary) hypertension; E11.9 Type 2 diabetes mellitus without complications; M19.90 Unspecified osteoarthritis, unspecified site; Z88.6 Allergy status to analgesic agent
CPT/HCPCS: 70360; 74000; 93005; 93010; 99283

== ENCOUNTER 2017-07-05 13:13 | Emergency (ER) | payer MEDICARE ==
[2017-07-05 13:30] VITALS: BP 126/76
[2017-07-05] MEDS ORDERED: ASPIRIN PO ONE (13:30)
[2017-07-05 13:53] LABS: Basophils % (Auto) 0.6 % (0.0-1.8); Eosinophils # (Auto) 0.3 K/mm3 (0.0-0.4); Eosinophils % (Auto) 5.2 % (0.0-4.3); Hematocrit 35.7 % (30.3-42.9); Hemoglobin 11.6 gm/dl (10.1-14.3); Lymphocytes # (Auto) 1.7 K/mm3 (1.2-5.4); Lymphocytes % (Auto) 30.5 % (13.4-35.0); Mean Corpuscular HGB Conc 32 % (30-34); Mean Corpuscular Hemoglobin 26 pg (28-32); Mean Corpuscular Volume 81 fl (79-97); Monocytes # (Auto) 0.5 K/mm3 (0.0-0.8); Monocytes % (Auto) 9.7 % (0.0-7.3); Platelet Count 266 K/mm3 (140-440); Red Blood Count 4.42 M/mm3 (3.65-5.03); Red Cell Distribution Width 15.1 % (13.2-15.2)
[2017-07-05 14:14] LABS: BUN/Creatinine Ratio 18; Blood Urea Nitrogen 11 mg/dL (7-17); Calcium 9.1 mg/dL (8.4-10.2); Hemolysis Index 8
== END 2017-07-05 17:18 | disposition left against medical advice (07) ==
LOC: ED 13:13
DX: R07.9 Chest pain, unspecified (principal); Z53.21 Procedure and treatment not carried out due to patient leaving prior to being seen by health care provider
CPT/HCPCS: 36415; 80048; 84484; 85025; 93005; 93010

== ENCOUNTER 2018-09-25 11:05 | Outpatient (CLI) | payer MEDICARE ==
--- NOTE | 2018-09-25 15:14 | Mammography Report ---
BILATERAL DIGITAL SCREENING MAMMOGRAM with CAD: 09/25/18 11:05:00 CLINICAL: Routine screening. COMPARISON: 06/01/15 FINDINGS: There are bilateral scattered areas of fibroglandular density.No mass, architectural distortion or suspicious calcifications. IMPRESSION: No mammographic evidence of malignancy. BI-RADS CATEGORY: 1 -- Negative RECOMMENDATION: Routine mammographic screening in one year. COMMENT: Patient follow-up letters are generated by our [employer] application.
== END 2018-09-25 11:06 | disposition home or self-care (01) ==
LOC: MAMMO 11:05
PROVIDERS: ATTEND Nurse Practitioner Family
DX: Z12.31 Encounter for screening mammogram for malignant neoplasm of breast (principal); I10 Essential (primary) hypertension; E78.5 Hyperlipidemia, unspecified; K21.9 Gastro-esophageal reflux disease without esophagitis; E11.65 Type 2 diabetes mellitus with hyperglycemia; E78.00 Pure hypercholesterolemia, unspecified; Z90.721 Acquired absence of ovaries, unilateral
CPT/HCPCS: 77067

== ENCOUNTER 2018-12-15 16:53 | Emergency (ER) | payer MEDICARE ==
[2018-12-15] MEDS: NACL 0.9% 1000 ML 1,000 ML IV ONE ×2 (17:40→20:18)
[2018-12-15] MEDS: ASPIRIN PO ONE ×2 (17:40→20:17)
[2018-12-15] MEDS ORDERED: ZOFRAN IV ONE (17:54)
[2018-12-15 18:16] LABS: Basophils % (Auto) 0.8 % (0.0-1.8); Eosinophils # (Auto) 0.1 K/mm3 (0.0-0.4); Eosinophils % (Auto) 2.5 % (0.0-4.3); Hematocrit 39.3 % (30.3-42.9); Lymphocytes # (Auto) 1.7 K/mm3 (1.2-5.4); Lymphocytes % (Auto) 38.2 % (13.4-35.0); Mean Corpuscular HGB Conc 33 % (30-34); Mean Corpuscular Volume 85 fl (79-97); Monocytes # (Auto) 0.3 K/mm3 (0.0-0.8); Monocytes % (Auto) 7.1 % (0.0-7.3); Platelet Count 207 K/mm3 (140-440); Red Blood Count 4.62 M/mm3 (3.65-5.03)
[2018-12-15 18:30] LABS: BUN/Creatinine Ratio 15; Blood Urea Nitrogen 9 mg/dL (7-17); Calcium 8.9 mg/dL (8.4-10.2); Hemolysis Index 0
--- NOTE | 2018-12-15 18:41 | XRay Report ---
PROCEDURE: XR CHEST 1V AP TECHNIQUE: Chest radiograph single view. HISTORY: Chest Pain COMPARISONS: CXR 05/28/2017 . FINDINGS: Heart: Normal. Mediastinum/Vessels: Normal. Lungs/Pleural space: Normal. Bony thorax: No acute osseous abnormality. Life support devices: None. IMPRESSION: No acute cardiopulmonary abnormality. This document is electronically signed by Babita Mendoza MD., December 15 2018 06:39:37 PM ET
[2018-12-15] MEDS ORDERED: MORPHINE IV ONE (18:45)
[2018-12-15] MEDS: MORPHINE IV ONE ×2 (19:00→20:17)
--- NOTE | 2018-12-15 20:29 | Cat Scan Report ---
PROCEDURE: CT ABDOMEN PELVIS W CON TECHNIQUE: Computerized axial tomography of the abdomen and pelvis was performed after the administr ation of IV iodinated nonionic contrast. CT DOSE LENGTH PRODUCT: mGycm HISTORY: ab pain s/p egd and dx of ulcers COMPARISONS: None . FINDINGS: Liver, spleen, pancreas and glands are within normal limits. Bilateral kidneys demonstrate normal enh ancement without hydronephrosis. Urinary bladder is partially filled. Aorta is of normal caliber. Min imal degree free fluid is noted in the pelvic cavity. There is no free air. Gallbladder is unremarkab le. Small bowel loops are within normal limits. There is mild degree of residual stool. A small fat-c ontaining uncomplicated supraumbilical midline hernia is noted measuring about 2 cm. Appendix is norm al. Mild degree degenerative changes are noted involving the lumbar spine. There is a well-defined fa t density lesion involving the right gluteal intermuscular plane measuring 8 cm x 8 cm x 2 cm most li lalo representing a lipoma. IMPRESSION: Minimal free fluid in the pelvic cavity Otherwise no acute intra-abdominal or pelvic pathology. Right gluteal lipoma This document is electronically signed by Isaiah Castanon MD., December 15 2018 08:26:58 PM ET
[2018-12-15 20:39] VITALS: BP 142/54
--- NOTE | 2018-12-15 20:48 | Emergency Department Report ---
ED General Adult HPI - General Chief complaint: Chest Pain Stated complaint: CHEST PAIN/ABDOMINAL PAIN Time Seen by Provider: 12/15/18 17:26 Source: EMS Mode of arrival: Ambulatory Limitations: No Limitations - History of Present Illness Initial comments: Patient presents to the emergency department with a chief complaint of chest and abdominal pain as radiating into her back after an EGD today. Patient states she was diagnosed with ulcer. Patient's cause of pain is sharp and rates it an 8 out of 10 on the pain scale -: Sudden Location: chest, abdomen Radiation: back, flank Severity scale (0 -10): 9 Quality: sharp Consistency: constant Improves with: none Worsens with: none Associated Symptoms: denies other symptoms (also part of the medical record for) Treatments Prior to Arrival: none - Related Data Home Medications Medication Instructions Recorded Confirmed Last Taken metFORMIN [Glucophage] 1,000 mg PO BID 06/18/13 05/28/17 05/27/17 Cyclobenzaprine [Flexeril 10 MG 10 mg PO TID PRN 05/28/17 05/28/17 05/27/17 TAB] Simvastatin (Nf) [Zocor TAB] 20 mg PO QHS 05/28/17 05/28/17 05/27/17 clonazePAM [KlonoPIN] 2 mg PO QPM 05/28/17 05/28/17 05/27/17 clonazePAM [Klonopin] 1 mg PO QAM 05/28/17 05/28/17 05/27/17 Previous Rx's Medication Instructions Recorded Last Taken Type Metoprolol Xl [Metoprolol 75 mg PO QDAY #30 tablet 05/30/17 Unknown Rx SUCCINATE ER TAB] HYDROcodone/APAP 5-325 [[place] 1 each PO Q6HR PRN #12 tablet 05/31/17 Unknown Rx 5/325] Metoclopramide HCl [Reglan TAB] 5 mg PO TIDAC #20 tablet 05/31/17 Unknown Rx Cyclobenzaprine HCl [Flexeril 5 MG 5 mg PO BID #10 tab 06/02/17 Unknown Rx TAB] Ibuprofen [Motrin] 600 mg PO Q8H PRN #30 tablet 06/02/17 Unknown Rx Nystas/Diphen/Xyl Visc/Mylanta 15 ml MM Q8H PRN 10 Days udc 06/02/17 Unknown Rx [Magic Mouthwash] Amoxicillin/K Clav Tab [Augmentin 1 tab PO Q12HR #20 tab 08/11/18 Unknown Rx 875MG TAB] Cetirizine HCl [ZyrTEC] 10 mg PO QAM 14 Days #14 capsule 08/11/18 Unknown Rx Fluticasone [Flonase] 1 spray NS QDAY 14 Days #1 bottle 08/11/18 Unknown Rx Meclizine [Antivert] 25 mg PO Q8H PRN #12 tablet 08/11/18 Unknown Rx Ondansetron [Zofran ODT TAB] 8 mg PO Q8HR PRN #12 tab.rapdis 08/11/18 Unknown Rx traMADol [Ultram 50 MG tab] 50 mg PO Q6HR PRN #12 tablet 08/11/18 Unknown Rx Allergies Allergy/AdvReac Type Severity Reaction Status Date / Time codeine AdvReac Mild Nausea Verified 05/28/17 12:08 ED Review of Systems ROS: Stated complaint: CHEST PAIN/ABDOMINAL PAIN Other details as noted in HPI Comment: All other systems reviewed and negative Constitutional: denies: chills, fever Eyes: denies: eye pain, eye discharge, vision change ENT: denies: ear pain, throat pain Respiratory: denies: cough, shortness of breath, wheezing Cardiovascular: chest pain. denies: palpitations Endocrine: no symptoms reported Gastrointestinal: denies: abdominal pain, nausea, diarrhea Genitourinary: denies: urgency, dysuria, discharge Musculoskeletal: denies: back pain, joint swelling, arthralgia Skin: denies: rash, lesions Neurological: denies: headache, weakness, paresthesias Psychiatric: denies: anxiety, depression Hematological/Lymphatic: denies: easy bleeding, easy bruising ED Past Medical Hx - Past Medical History Previous Medical History?: Yes Hx Hypertension: Yes Hx CVA: No Hx Heart Attack/AMI: No Hx Congestive Heart Failure: No Hx Diabetes: Yes Hx Deep Vein Thrombosis: No Hx Pulmonary Embolism: No Hx GERD: No Hx Liver Disease: No Hx Renal Disease: No Hx of Cancer: No Hx Sickle Cell Disease: No Hx Arthritis: Yes Hx Headaches / Migraines: No Hx Seizures: No Hx Kidney Stones: No Hx Psychiatric Treatment: Yes (anxiety) Hx Asthma: No Hx COPD: No Hx Dementia: No Hx HIV: No Additional medical history: A fib. High cholesterol - Surgical History Hx Coronary Stent: No Hx Open Heart Surgery: No Hx Pacemaker: No Hx Internal Defibrillator: No Hx Cholecystectomy: No Hx Appendectomy: No Hx Breast Surgery: No Additional Surgical History: cardiac ablation. c section x 3, hysterectomy. right knee replacment 06/13 - Social History Smoking Status: Never Smoker Substance Use Type: None - Medications Home Medications: Home Medications Medication Instructions Recorded Confirmed Last Taken Type metFORMIN [Glucophage] 1,000 mg PO BID 06/18/13 05/28/17 05/27/17 History Cyclobenzaprine [Flexeril 10 MG 10 mg PO TID PRN 05/28/17 05/28/17 05/27/17 History TAB] Simvastatin (Nf) [Zocor TAB] 20 mg PO QHS 05/28/17 05/28/17 05/27/17 History clonazePAM [KlonoPIN] 2 mg PO QPM 05/28/17 05/28/17 05/27/17 History clonazePAM [Klonopin] 1 mg PO QAM 05/28/17 05/28/17 05/27/17 History Metoprolol Xl [Metoprolol 75 mg PO QDAY #30 tablet 05/30/17 Unknown Rx SUCCINATE ER TAB] HYDROcodone/APAP 5-325 [[place] 1 each PO Q6HR PRN #12 tablet 05/31/17 Unknown Rx 5/325] Metoclopramide HCl [Reglan TAB] 5 mg PO TIDAC #20 tablet 05/31/17 Unknown Rx Cyclobenzaprine HCl [Flexeril 5 MG 5 mg PO BID #10 tab 06/02/17 Unknown Rx TAB] Ibuprofen [Motrin] 600 mg PO Q8H PRN #30 tablet 06/02/17 Unknown Rx Nystas/Diphen/Xyl Visc/Mylanta 15 ml MM Q8H PRN 10 Days udc 06/02/17 Unknown Rx [Magic Mouthwash] Amoxicillin/K Clav Tab [Augmentin 1 tab PO Q12HR #20 tab 08/11/18 Unknown Rx 875MG TAB] Cetirizine HCl [ZyrTEC] 10 mg PO QAM 14 Days #14 capsule 08/11/18 Unknown Rx Fluticasone [Flonase] 1 spray NS QDAY 14 Days #1 bottle 08/11/18 Unknown Rx Meclizine [Antivert] 25 mg PO Q8H PRN #12 tablet 08/11/18 Unknown Rx Ondansetron [Zofran ODT TAB] 8 mg PO Q8HR PRN #12 tab.rapdis 08/11/18 Unknown Rx traMADol [Ultram 50 MG tab] 50 mg PO Q6HR PRN #12 tablet 08/11/18 Unknown Rx ED Physical Exam - General Limitations: No Limitations General appearance: alert, in no apparent distress - Head Head exam: Present: atraumatic, normocephalic - Eye Eye exam: Present: normal appearance, PERRL, EOMI - ENT ENT exam: Present: mucous membranes moist - Neck Neck exam: Present: normal inspection - Respiratory Respiratory exam: Present: normal lung sounds bilaterally. Absent: respiratory distress - Cardiovascular Cardiovascular Exam: Present: regular rate, normal rhythm. Absent: systolic murmur, diastolic murmur, rubs, gallop - GI/Abdominal GI/Abdominal exam: Present: soft, normal bowel sounds. Absent: distended, tenderness - Extremities Exam Extremities exam: Present: normal inspection - Back Exam Back exam: Present: normal inspection - Neurological Exam Neurological exam: Present: alert, oriented X3, CN II-XII intact. Absent: motor sensory deficit - Psychiatric Psychiatric exam: Present: normal affect, normal mood - Skin Skin exam: Present: warm, dry, intact, normal color. Absent: rash ED Course Vital Signs 12/15/18 12/15/18 12/15/18 17:08 17:16 17:19 Temperature 98.2 F Pulse Rate 78 92 H Respiratory 11 L 11 L 12 Rate Blood Pressure 113/80 113/80 Blood Pressure 113/80 [Right] O2 Sat by Pulse 97 95 96 Oximetry 12/15/18 12/15/18 12/15/18 17:30 17:46 18:00 Temperature Pulse Rate 79 85 Respiratory 15 10 L 15 Rate Blood Pressure 113/80 113/80 113/80 Blood Pressure [Right] O2 Sat by Pulse 97 97 97 Oximetry 12/15/18 12/15/18 12/15/18 18:16 18:30 18:46 Temperature Pulse Rate 72 89 88 Respiratory 11 L 12 12 Rate Blood Pressure 113/80 113/80 113/80 Blood Pressure [Right] O2 Sat by Pulse 98 95 94 Oximetry 12/15/18 12/15/18 12/15/18 19:00 19:16 19:30 Temperature Pulse Rate 87 85 Respiratory 25 H 20 18 Rate Blood Pressure 142/54 142/54 Blood Pressure [Right] O2 Sat by Pulse 83 L 96 Oximetry 12/15/18 12/15/18 12/15/18 19:50 20:00 20:16 Temperature Pulse Rate Respiratory Rate Blood Pressure 142/54 142/54 142/54 Blood Pressure [Right] O2 Sat by Pulse 99 99 98 Oximetry 12/15/18 12/15/18 20:17 20:30 Temperature Pulse Rate Respiratory 18 Rate Blood Pressure 142/54 Blood Pressure [Right] O2 Sat by Pulse 97 Oximetry ED Medical Decision Making - Lab Data Result diagrams: 12/15/18 17:57 12/15/18 17:57 Lab Results 12/15/18 12/15/18 12/15/18 Range/Units 17:57 17:57 20:00 WBC 4.4 L (4.5-11.0) K/mm3 RBC 4.62 (3.65-5.03) M/mm3 Hgb 13.0 (10.1-14.3) gm/dl Hct 39.3 (30.3-42.9) % MCV 85 (79-97) fl MCH 28 (28-32) pg MCHC 33 (30-34) % RDW 14.0 (13.2-15.2) % Plt Count 207 (140-440) K/mm3 Lymph % (Auto) 38.2 H (13.4-35.0) % [place] % (Auto) 7.1 (0.0-7.3) % Eos % (Auto) 2.5 (0.0-4.3) % Baso % (Auto) 0.8 (0.0-1.8) % Lymph # 1.7 (1.2-5.4) K/mm3 [place] # 0.3 (0.0-0.8) K/mm3 Eos # 0.1 (0.0-0.4) K/mm3 Baso # 0.0 (0.0-0.1) K/mm3 Seg Neutrophils % 51.4 (40.0-70.0) % Seg Neutrophils # 2.2 (1.8-7.7) K/mm3 Sodium 142 (137-145) mmol/L Potassium 3.1 L (3.6-5.0) mmol/L Chloride 103.0 (98-107) mmol/L Carbon Dioxide 25 (22-30) mmol/L Anion Gap 17 mmol/L BUN 9 (7-17) mg/dL Creatinine 0.6 L (0.7-1.2) mg/dL Estimated GFR > 60 ml/min BUN/Creatinine Ratio 15 % Glucose 105 H (65-100) mg/dL Calcium 8.9 (8.4-10.2) mg/dL Troponin T < 0.010 < 0.010 (0.00-0.029) ng/mL - EKG Data -: EKG Interpreted by Me EKG shows normal: sinus rhythm Rate: normal Critical care attestation.: If time is entered above; I have spent that time in minutes in the direct care of this critically ill patient, excluding procedure time. ED Disposition Clinical Impression: Chest pain, Abdominal pain Disposition: DC- TO HOME OR SELFCARE Is pt being admited?: No Does the pt Need Aspirin: No Condition: Stable Instructions: Chest Pain (ED) Referrals: BABAK FULLER NP [Primary Care Provider] - 3-5 Days PRIMARY CARE, [Referring] - 3-5 Days [facility] [Provider Group] - 3-5 Days [facility] [Provider Group] - 3-5 Days Time of Disposition: 07:02
--- NOTE | 2018-12-15 20:54 | Cat Scan Report ---
PROCEDURE: CT CHEST W CON TECHNIQUE: Computerized axial tomography of the chest was performed during the IV injection of iodin ated nonionic contrast. CT DOSE LENGTH PRODUCT: 2679.1 mGycm HISTORY: chest pain s/p egd COMPARISONS: None . FINDINGS: A small patchy density is noted involving the medial right upper lobe. There are two 4 mm nodules in the superior segment right lower lobe. Bilateral pleural spaces are clear. Visualized thyroid demonst rates normal density. Aorta is of normal caliber. There is no lymphadenopathy. Vertebral height is no rmal. IMPRESSION: Small patchy density in the medial portion right upper lobe may represent early infiltrates. Two 4 mm nodules are noted in the superior segment right lower lobe. A 3-6 month follow-up study is r ecommended. This document is electronically signed by Isaiah Castanon MD., December 15 2018 08:52:09 PM ET
== END 2018-12-15 22:22 | disposition home or self-care (01) ==
LOC: ED 16:53
DX: R07.89 Other chest pain (principal); R10.2 Pelvic and perineal pain; I10 Essential (primary) hypertension; E11.9 Type 2 diabetes mellitus without complications; M19.90 Unspecified osteoarthritis, unspecified site; I48.91 Unspecified atrial fibrillation; E78.00 Pure hypercholesterolemia, unspecified; Z90.710 Acquired absence of both cervix and uterus; Z96.651 Presence of right artificial knee joint; Z79.84 Long term (current) use of oral hypoglycemic drugs; Z79.1 Long term (current) use of non-steroidal anti-inflammatories (NSAID); Z79.899 Other long term (current) drug therapy; Z88.5 Allergy status to narcotic agent
CPT/HCPCS: 36415; 71045; 71260; 74177; 80048; 84484; 85025; 93005; 93010; 96374; 96375; 99285; J2270; J2405; J7030; Q9967; 96376

== ENCOUNTER 2020-09-30 07:47 | Emergency (ER) | payer MEDICARE ==
--- NOTE | 2020-09-30 08:49 | XRay Report ---
Lumbar spine 3 views INDICATION: Low back pain IMPRESSION: Grade 1 anterolisthesis of L4-L5. Mild to moderate facet arthropathy at L4-L5 and L5-S1. There is mild bilateral neural foraminal narrowing at L5-S1. Signer Name: Brandon Ling MD Signed: 09/30/2020 8:45 AM Workstation Name: [id number]
--- NOTE | 2020-09-30 08:50 | XRay Report ---
Right humerus 2 views INDICATION: Right arm pain after fall IMPRESSION: No discrete fracture of the humerus identified. Signer Name: Brandon Ling MD Signed: 09/30/2020 8:46 AM Workstation Name: [id number]
--- NOTE | 2020-09-30 09:56 | Emergency Department Report ---
ED Fall HPI - General Chief Complaint: Dizziness Stated Complaint: RT ARM/BACK PAIN/DIZZY/BUSTED LIP Time Seen by Provider: 09/30/20 07:58 Source: patient Mode of arrival: Ambulatory - History of Present Illness Initial Comments: 60-year-old F [place] female was eating at the [employer] on yesterday when she decided to leave the store and go over to a [employer] supply location. Upon her returning from the [employer] supply location when she was stepping down from the curb and lost her balance falling forward onto her face striking her face and right shoulder on the asphalt. She states that there was a brief period of loss of consciousness and since that has been having some issues with dull throbbing headache, dizziness with nausea but reports no neck pain, chest pain, hemoptysis, hematemesis hematochezia. Feels that her tooth may be loosened but there is no trauma to the intraoral region. Some swelling to the right side of the lip was noted as well Fall From: standing When Fall Occurred: [address] Fall Occurred: street Loss of Consciousness: yes Prolonged Down Time?: no Symptoms Prior to Fall: none Location: head, face Location - Extremities: Right: Shoulder Severity: moderate Associated Symptoms: headache, lightheaded. denies: weakness, chest paint, shortness of breath, confusion - Related Data Home Medications Medication Instructions Recorded Confirmed Last Taken metFORMIN [Glucophage] 1,000 mg PO BID 06/18/13 05/28/17 05/27/17 2000 mg Cyclobenzaprine [Flexeril 10 MG 10 mg PO TID PRN 05/28/17 05/28/17 05/27/17 TAB] Simvastatin (Nf) [Zocor TAB] 20 mg PO QHS 05/28/17 05/28/17 05/27/17 clonazePAM [KlonoPIN] 2 mg PO QPM 05/28/17 05/28/17 05/27/17 clonazePAM [Klonopin] 1 mg PO QAM 05/28/17 05/28/17 05/27/17 Previous Rx's Medication Instructions Recorded Last Taken Type Metoprolol Xl [Metoprolol 75 mg PO QDAY #30 tablet 05/30/17 Unknown Rx SUCCINATE ER TAB] HYDROcodone/APAP 5-325 [[place] 1 each PO Q6HR PRN #12 tablet 05/31/17 Unknown Rx 5/325] Metoclopramide HCl [Reglan TAB] 5 mg PO TIDAC #20 tablet 05/31/17 Unknown Rx Cyclobenzaprine HCl [Flexeril 5 MG 5 mg PO BID #10 tab 06/02/17 Unknown Rx TAB] Ibuprofen [Motrin] 600 mg PO Q8H PRN #30 tablet 06/02/17 Unknown Rx Nystas/Diphen/Xyl Visc/Mylanta 15 ml MM Q8H PRN 10 Days udc 06/02/17 Unknown Rx [Magic Mouthwash] Amoxicillin/K Clav Tab [Augmentin 1 tab PO Q12HR #20 tab 08/11/18 Unknown Rx 875MG TAB] Cetirizine HCl [ZyrTEC] 10 mg PO QAM 14 Days #14 capsule 08/11/18 Unknown Rx Fluticasone [Flonase] 1 spray NS QDAY 14 Days #1 bottle 08/11/18 Unknown Rx Meclizine [Antivert] 25 mg PO Q8H PRN #12 tablet 08/11/18 Unknown Rx Ondansetron [Zofran ODT TAB] 8 mg PO Q8HR PRN #12 tab.rapdis 08/11/18 Unknown Rx traMADoL [Ultram 50 MG tab] 50 mg PO Q6HR PRN #12 tablet 08/11/18 Unknown Rx methOCARBAMOL [Robaxin TAB] 500 mg PO Q6H PRN #20 tablet 09/30/20 Unknown Rx Allergies Allergy/AdvReac Type Severity Reaction Status Date / Time codeine AdvReac Mild Nausea Verified 05/28/17 12:08 ED Review of Systems ROS: Stated complaint: RT ARM/BACK PAIN/DIZZY/BUSTED LIP Other details as noted in HPI Comment: All other systems reviewed and negative ED Past Medical Hx - Past Medical History Previous Medical History?: Yes Hx Hypertension: Yes Hx CVA: No Hx Heart Attack/AMI: No Hx Congestive Heart Failure: No Hx Diabetes: Yes Hx Deep Vein Thrombosis: No Hx Pulmonary Embolism: No Hx GERD: No Hx Liver Disease: No Hx Renal Disease: No Hx Sickle Cell Disease: No Hx Arthritis: Yes Hx Headaches / Migraines: No Hx Seizures: No Hx Kidney Stones: No Hx Psychiatric Treatment: Yes (anxiety) Hx Asthma: No Hx COPD: No Hx Dementia: No Hx HIV: No Additional medical history: A fib. High cholesterol - Surgical History Past Surgical History?: Yes Hx Coronary Stent: No Hx Open Heart Surgery: No Hx Pacemaker: No Hx Internal Defibrillator: No Hx Cholecystectomy: No Hx Appendectomy: No Hx Breast Surgery: No Additional Surgical History: cardiac ablation. c section x 3, hysterectomy. right knee replacment 06/13 - Social History Smoking Status: Never Smoker Substance Use Type: None - Medications Home Medications: Home Medications Medication Instructions Recorded Confirmed Last Taken Type metFORMIN [Glucophage] 1,000 mg PO BID 06/18/13 05/28/17 05/27/17 History 2000 mg Cyclobenzaprine [Flexeril 10 MG 10 mg PO TID PRN 05/28/17 05/28/17 05/27/17 History TAB] Simvastatin (Nf) [Zocor TAB] 20 mg PO QHS 05/28/17 05/28/17 05/27/17 History clonazePAM [KlonoPIN] 2 mg PO QPM 05/28/17 05/28/17 05/27/17 History clonazePAM [Klonopin] 1 mg PO QAM 05/28/17 05/28/17 05/27/17 History Metoprolol Xl [Metoprolol 75 mg PO QDAY #30 tablet 05/30/17 Unknown Rx SUCCINATE ER TAB] HYDROcodone/APAP 5-325 [[place] 1 each PO Q6HR PRN #12 tablet 05/31/17 Unknown Rx 5/325] Metoclopramide HCl [Reglan TAB] 5 mg PO TIDAC #20 tablet 05/31/17 Unknown Rx Cyclobenzaprine HCl [Flexeril 5 MG 5 mg PO BID #10 tab 06/02/17 Unknown Rx TAB] Ibuprofen [Motrin] 600 mg PO Q8H PRN #30 tablet 06/02/17 Unknown Rx Nystas/Diphen/Xyl Visc/Mylanta 15 ml MM Q8H PRN 10 Days udc 06/02/17 Unknown Rx [Magic Mouthwash] Amoxicillin/K Clav Tab [Augmentin 1 tab PO Q12HR #20 tab 08/11/18 Unknown Rx 875MG TAB] Cetirizine HCl [ZyrTEC] 10 mg PO QAM 14 Days #14 capsule 08/11/18 Unknown Rx Fluticasone [Flonase] 1 spray NS QDAY 14 Days #1 bottle 08/11/18 Unknown Rx Meclizine [Antivert] 25 mg PO Q8H PRN #12 tablet 08/11/18 Unknown Rx Ondansetron [Zofran ODT TAB] 8 mg PO Q8HR PRN #12 tab.rapdis 08/11/18 Unknown Rx traMADoL [Ultram 50 MG tab] 50 mg PO Q6HR PRN #12 tablet 08/11/18 Unknown Rx methOCARBAMOL [Robaxin TAB] 500 mg PO Q6H PRN #20 tablet 09/30/20 Unknown Rx ED Physical Exam - General Limitations: No Limitations General appearance: alert, in no apparent distress - Head Head exam: Present: atraumatic, normocephalic, normal inspection - Eye Eye exam: Present: normal appearance, PERRL, EOMI. Absent: scleral icterus, conjunctival injection Pupils: Present: normal accommodation - ENT ENT exam: Present: normal exam, mucous membranes moist, TM's normal bilaterally. Absent: normal orophraynx - Neck Neck exam: Present: normal inspection - Respiratory Respiratory exam: Present: normal lung sounds bilaterally. Absent: respiratory distress, wheezes, rales - Cardiovascular Cardiovascular Exam: Present: regular rate, normal rhythm. Absent: bradycardia, tachycardia, systolic murmur, diastolic murmur, rubs, gallop - GI/Abdominal GI/Abdominal exam: Present: soft, normal bowel sounds - Extremities Exam Extremities exam: Present: normal inspection, full ROM, normal capillary refill - Back Exam Back exam: Present: normal inspection. Absent: CVA tenderness (R), CVA tenderness (L) - Neurological Exam Neurological exam: Present: alert, oriented X3, CN II-XII intact - Psychiatric Psychiatric exam: Present: normal affect, normal mood - Skin Skin exam: Present: warm, dry, intact, normal color. Absent: rash ED Course Vital Signs 09/30/20 07:49 Temperature 98.4 F Pulse Rate 78 Respiratory 18 Rate Blood Pressure 123/82 O2 Sat by Pulse 98 Oximetry ED Medical Decision Making - Radiology Data Radiology results: report reviewed [address] [place] [id number] XRay Report Signed Patient: CHINO OLSEN MR# : [id number] : 1960 Acct:[id number] Age/Sex: 60 / F ADM Date: 09/30/20 Loc: ED Attending Dr: Ordering Physician: CORDELL ODEN Date of Service: 09/30/20 Procedure(s): XR spine lumbosacral 2-3V Accession Number(s): [id number] cc: CORDELL ODEN Fluoro Time In Minutes: Lumbar spine 3 views INDICATION: Low back pain IMPRESSION: Grade 1 anterolisthesis of L4-L5. Mild to moderate facet arthropathy at L4-L5 and L5- S1. There is mild bilateral neural foraminal narrowing at L5-S1. Signer Name: Brandon Ling MD Signed: 09/30/2020 8:45 AM Workstation Name: [id number] Transcribed By: Dictated By: Brandon Ling MD Electronically Authenticated By: Brandon Ling MD Signed Date/Time: 09/30/20844 DD/ 4 TD/TT: [address] [place] [id number] XRay Report Signed Patient: CHINO OLSEN MR# : [id number] : 1960 Acct:[id number] Age/Sex: 60 / F ADM Date: 09/30/20 Loc: ED Attending Dr: Ordering Physician: CORDELL ODEN Date of Service: 09/30/20 Procedure(s): XR humerus 2+V RT Accession Number(s): [id number] cc: CORDELL ODEN Fluoro Time In Minutes: Right humerus 2 views INDICATION: Right arm pain after fall IMPRESSION: No discrete fracture of the humerus identified. Signer Name: Brandon Ling MD Signed: 09/30/2020 8:46 AM Workstation Name: [id number] Transcribed By: Dictated By: Brandon Ling MD Electronically Authenticated By: Brandon Ling MD Signed Date/Time: 09/30/20845 DD/ 4 TD/TT: [address] [place] [id number] Cat Scan Report Signed Patient: CHINO OLSEN MR# : [id number] : 1960 Acct:[id number] Age/Sex: 60 / F ADM Date: 09/30/20 Loc: ED Attending Dr: Ordering Physician: CORDELL ODEN Date of Service: 09/30/20 Procedure(s): CT head/brain wo con Accession Number(s): [id number] cc: CORDELL ODEN CT head/brain wo con INDICATION: Head trauma, loss of consciousness. TECHNIQUE: Routine CT head without contrast. All CT scans at this location are performed using CT dose reduction for ALARA by means of automated exposure control. COMPARISON: None. FINDINGS: BRAIN / INTRACRANIAL CONTENTS: No acute hemorrhage, brain edema, mass effect, or hydrocephalus. Normal arroyo-white differentiation. No chronic infarct or focal atrophy. Normal brain volume and ventricular/sulcal size for age. CALVARIUM/SKULL BASE/CRANIOCERVICAL JUNCTION: No evidence of fracture. ORBITS: No significant abnormality of visualized orbits. SINUSES / MASTOIDS: No significant abnormality of visualized sinuses and mastoid air cells. ADDITIONAL FINDINGS: None. IMPRESSION: 1. No acute post-traumatic intracranial abnormality. Signer Name: Misael Jacobs MD Signed: 09/30/2020 9:57 AM Workstation Name: [id number] Transcribed By: SHREYA Dictated By: Misael Jacobs MD Electronically Authenticated By: Misael Jacobs MD Signed Date/Time: 09/30/20956 DD/ 4 TD/TT: - Medical Decision Making Current [place] coma scale 15. Does have large occiput to hematoma. No skull crepitance or stepoff. No Diaz sign. No raccoon eyes. No fluid from nose or ears. No nasal septal hematoma. No open wounds. No cervical spine tenderness. CT scan performed to evaluate for any intracranial injury or skull fracture. Patient is protecting airway and otherwise has an unremarkable secondary trauma survey. Is awake alert and oriented x3 she is ambulatory and sound judgment. Given instructions regarding supportive care including pain meds as needed, return precautions, follow-up with primary physician. Critical care attestation.: If time is entered above; I have spent that time in minutes in the direct care of this critically ill patient, excluding procedure time. ED Disposition Clinical Impression: Fall (on) (from) unspecified stairs and steps, sequela, Head injury due to trauma, Musculoskeletal pain, Shoulder contusion Disposition: -01 TO HOME OR SELFCARE Is pt being admited?: No Does the pt Need Aspirin: No Condition: Stable Instructions: Fall Prevention in the Home, Adult, [id number], Head Injury, Adult, How to Use Cold Therapy, [id number]-[id number], Post-Concussion Syndrome, [id number], Concussion, Adult, Fall Prevention in the Home, Adult Additional Instructions: Also be sure to follow-up with the dentist to evaluate evaluate your slightly loosened front dentition tooth number as we discussed. Please utilize Tylenol and Motrin as needed for your pain a and Robaxin now will also be added to your regimen to help with your discomfort. Please apply ice to your shoulder and wear the sling for comfort Prescriptions: methOCARBAMOL [Robaxin TAB] 500 mg PO Q6H PRN #20 tablet PRN Reason: muscle aches and pain Referrals: [facility] [Provider Group] - 3-5 Days PRIMARY CARE, [Primary Care Provider] - 3-5 Days
--- NOTE | 2020-09-30 10:01 | Cat Scan Report ---
CT head/brain wo con INDICATION: Head trauma, loss of consciousness. TECHNIQUE: Routine CT head without contrast. All CT scans at this location are performed using CT dose reduction for ALARA by means of automated exposure control. COMPARISON: None. FINDINGS: BRAIN / INTRACRANIAL CONTENTS: No acute hemorrhage, brain edema, mass effect, or hydrocephalus. Caroline l arroyo-white differentiation. No chronic infarct or focal atrophy. Normal brain volume and ventricula r/sulcal size for age. CALVARIUM/SKULL BASE/CRANIOCERVICAL JUNCTION: No evidence of fracture. ORBITS: No significant abnormality of visualized orbits. SINUSES / MASTOIDS: No significant abnormality of visualized sinuses and mastoid air cells. ADDITIONAL FINDINGS: None. IMPRESSION: 1. No acute post-traumatic intracranial abnormality. Signer Name: Misael Jacobs MD Signed: 09/30/2020 9:57 AM Workstation Name: [id number]
[2020-09-30] MEDS ORDERED: oxyCODONE /ACETAMINOPHEN 5-325MG TAB PO ONE (10:50)
[2020-09-30] MEDS ORDERED: ONDANSETRON 4 MG ODT TAB PO ONE (10:50)
[2020-09-30 14:25] VITALS: BP 123/71
--- NOTE | 2020-10-06 13:42 | Electrocardiograph Report ---
[facility] Test Date: 2020-09-30 Test Time: 10:06:18 Pat Name: CHINO OLSEN Department: Room: Gender: F Personal Security Specialist: SIMON : 1960 Requested By: FRANCY HYMAN Order Number: [id number] Reading MD: Nabeel Harrington Measurements Intervals [place] Rate: 57 P: 9 CA: 150 QRS: 67 QRSD: 85 T: 72 QT: 446 QTc: 435 Interpretive Statements Slow sinus arrhythmia Anterior infarct, age indeterminate No previous ECG available for comparison Electronically Signed On 10-06-2020 13:42:04 EDT by Nabeel Harrington
== END 2020-09-30 14:50 | disposition home or self-care (01) ==
LOC: ED 07:47
DX: R42 Dizziness and giddiness (principal); R51.9 Headache, unspecified; S06.9X9S Unspecified intracranial injury with loss of consciousness of unspecified duration, sequela; S40.011S Contusion of right shoulder, sequela; I10 Essential (primary) hypertension; E11.9 Type 2 diabetes mellitus without complications; F41.9 Anxiety disorder, unspecified; Z90.710 Acquired absence of both cervix and uterus; Z98.890 Other specified postprocedural states; Z79.84 Long term (current) use of oral hypoglycemic drugs; Z79.899 Other long term (current) drug therapy; Z88.8 Allergy status to other drugs, medicaments and biological substances; W10.9XXS Fall (on) (from) unspecified stairs and steps, sequela
CPT/HCPCS: 70450; 72100; 93005; Q0162

== ENCOUNTER 2020-10-20 11:14 | Emergency (ER) | payer MEDICARE ==
--- NOTE | 2020-10-20 11:30 | Emergency Department Report ---
Blank Doc - Documentation Documentation: 61-year-old female that presents with chest pain, shortness of breath. History of cardiac. 1- This initial assessment/diagnostic orders/clinical plan/ treatment(s) is/are subject to change based on pt's health status, clinical progression and re- assessment by fellow clinical providers in the ED. Further treatment and workup at subsequent clinical provers discretion. Patient/guardians urged not to elope from ED as their condition may be serious if not clinically assessed and managed. 2-cardiac work-up
--- NOTE | 2020-10-20 12:40 | XRay Report ---
CHEST 2 VIEWS INDICATION / CLINICAL INFORMATION: Chest Pain. COMPARISON: None available. FINDINGS: SUPPORT DEVICES: None. HEART / MEDIASTINUM: No significant abnormality. LUNGS / PLEURA: No significant pulmonary or pleural abnormality. No pneumothorax. ADDITIONAL FINDINGS: No significant additional findings. IMPRESSION: 1. No acute findings. Signer Name: Tonio Caicedo MD Signed: 10/20/2020 12:36 PM Workstation Name: [id number]
[2020-10-20 12:47] LABS: Basophils % (Auto) 0.5 % (0.0-1.8); Eosinophils # (Auto) 0.1 K/mm3 (0.0-0.4); Eosinophils % (Auto) 3.1 % (0.0-4.3); Hematocrit 38.3 % (30.3-42.9); Hemoglobin 12.6 gm/dl (10.1-14.3); Lymphocytes # (Auto) 1.1 K/mm3 (1.2-5.4); Lymphocytes % (Auto) 24.5 % (13.4-35.0); Mean Corpuscular HGB Conc 33 % (30-34); Mean Corpuscular Volume 86 fl (79-97); Monocytes # (Auto) 0.4 K/mm3 (0.0-0.8); Monocytes % (Auto) 9.3 % (0.0-7.3); Red Blood Count 4.45 M/mm3 (3.65-5.03); Red Cell Distribution Width 13.3 % (13.2-15.2)
[2020-10-20 13:09] LABS: Alanine Aminotransferase 12 units/L (7-56); Albumin 4.1 g/dL (3.9-5); Blood Urea Nitrogen 19 mg/dL (7-17); Calcium 8.8 mg/dL (8.4-10.2); Hemolysis Index 6
[2020-10-20 13:15] LABS: BUN/Creatinine Ratio 27
[2020-10-20 13:16] LABS: INR 0.82 (0.87-1.13); Partial Thromboplastin Time 25.1 Sec. (24.2-36.6); Platelet Count 171 K/mm3 (140-440)
[2020-10-20] MEDS ORDERED: KETOROLAC 30 MG/1 ML INJ IM ONE (16:31)
[2020-10-20] MEDS ORDERED: oxyCODONE /ACETAMINOPHEN 5-325MG TAB PO ONE (16:31)
--- NOTE | 2020-10-20 16:40 | Emergency Department Report ---
ED Fall HPI - General Chief Complaint: Chest Pain Stated Complaint: CHEST PAINS Time Seen by Provider: 10/20/20 11:29 Source: patient Mode of arrival: Ambulatory Limitations: No Limitations - History of Present Illness Initial Comments: Chief complaint: I fell. I am not healed up yet." HPI: This is a 60-year-old female with history of atrial fibrillation status post cardiac ablation, hypertension, diabetes mellitus who presents with neck pain back pain right arm pain right chest wall pain after fall 2-1/2 weeks ago. She is evaluated by her PCP who plans to refer her to orthopedic surgeon. She also desires physical therapy.-Ibuprofen has not provided any relief. Patient informed triage provider triage that she had chest pain. Upon further examination patient has had right-sided chest pain since the fall 2020 half weeks ago. She was evaluated at this hospital for facial contusion right arm pain back pain on August 02. She currently denies shortness of breath vomiting. Chest pain is a pulling sensation with movement of the right arm. MD Complaint: fall -: Gradual, week(s) (20 days ago on September 30) Fall From: other (Patient tripped over a curb while walking out of a restaurant) Fall Witnessed: yes, by family Place Fall Occurred: street (Restaurant parking lot) Loss of Consciousness: none Prolonged Down Time?: no Location: face, neck, other (Back right upper extremity pain) Severity: severe Severity scale (0 -10): 8 Context: tripped/slipped Associated Symptoms: other (Chest pain neck pain back pain, patient has been using a sling since the injury) - Related Data Home Medications Medication Instructions Recorded Confirmed Last Taken metFORMIN [Glucophage] 1,000 mg PO BID 06/18/13 05/28/17 05/27/17 2000 mg Cyclobenzaprine [Flexeril 10 MG 10 mg PO TID PRN 05/28/17 05/28/17 05/27/17 TAB] Simvastatin (Nf) [Zocor TAB] 20 mg PO QHS 05/28/17 05/28/17 05/27/17 clonazePAM [KlonoPIN] 2 mg PO QPM 05/28/17 05/28/17 05/27/17 clonazePAM [Klonopin] 1 mg PO QAM 05/28/17 05/28/17 05/27/17 Previous Rx's Medication Instructions Recorded Last Taken Type Metoprolol Xl [Metoprolol 75 mg PO QDAY #30 tablet 05/30/17 Unknown Rx SUCCINATE ER TAB] HYDROcodone/APAP 5-325 [[place] 1 each PO Q6HR PRN #12 tablet 05/31/17 Unknown Rx 5/325] Metoclopramide HCl [Reglan TAB] 5 mg PO TIDAC #20 tablet 05/31/17 Unknown Rx Cyclobenzaprine HCl [Flexeril 5 MG 5 mg PO BID #10 tab 06/02/17 Unknown Rx TAB] Ibuprofen [Motrin] 600 mg PO Q8H PRN #30 tablet 06/02/17 Unknown Rx Nystas/Diphen/Xyl Visc/Mylanta 15 ml MM Q8H PRN 10 Days udc 06/02/17 Unknown Rx [Magic Mouthwash] Amoxicillin/K Clav Tab [Augmentin 1 tab PO Q12HR #20 tab 08/11/18 Unknown Rx 875MG TAB] Cetirizine HCl [ZyrTEC] 10 mg PO QAM 14 Days #14 capsule 08/11/18 Unknown Rx Fluticasone [Flonase] 1 spray NS QDAY 14 Days #1 bottle 08/11/18 Unknown Rx Meclizine [Antivert] 25 mg PO Q8H PRN #12 tablet 08/11/18 Unknown Rx Ondansetron [Zofran ODT TAB] 8 mg PO Q8HR PRN #12 tab.rapdis 08/11/18 Unknown Rx traMADoL [Ultram 50 MG tab] 50 mg PO Q6HR PRN #12 tablet 08/11/18 Unknown Rx methOCARBAMOL [Robaxin TAB] 500 mg PO Q6H PRN #20 tablet 09/30/20 Unknown Rx HYDROcodone/APAP 5-325 [[place] 1 each PO Q6HR PRN #15 tablet 10/20/20 Unknown Rx 5/325] Allergies Allergy/AdvReac Type Severity Reaction Status Date / Time codeine AdvReac Mild Nausea Verified 10/20/20 11:23 ED Review of Systems ROS: Stated complaint: CHEST PAINS Other details as noted in HPI Comment: All other systems reviewed and negative Constitutional: denies: fever, malaise Respiratory: denies: cough, shortness of breath Gastrointestinal: denies: abdominal pain Neurological: headache ED Past Medical Hx - Past Medical History Previous Medical History?: Yes Hx Hypertension: No Hx CVA: No Hx Heart Attack/AMI: No Hx Congestive Heart Failure: No Hx Diabetes: Yes Hx Deep Vein Thrombosis: No Hx Pulmonary Embolism: No Hx GERD: No Hx Liver Disease: No Hx Renal Disease: No Hx Sickle Cell Disease: No Hx Arthritis: Yes Hx Headaches / Migraines: No Hx Seizures: No Hx Kidney Stones: No Hx Psychiatric Treatment: Yes (anxiety) Hx Asthma: No Hx COPD: No Hx Dementia: No Hx HIV: No Additional medical history: A fib. High cholesterol - Surgical History Past Surgical History?: Yes Hx Coronary Stent: No Hx Open Heart Surgery: No Hx Pacemaker: No Hx Internal Defibrillator: No Hx Cholecystectomy: No Hx Appendectomy: No Hx Breast Surgery: No Additional Surgical History: cardiac ablation. c section x 3, hysterectomy. right knee replacment 06/13 - Social History Smoking Status: Never Smoker Substance Use Type: None - Medications Home Medications: Home Medications Medication Instructions Recorded Confirmed Last Taken Type metFORMIN [Glucophage] 1,000 mg PO BID 06/18/13 05/28/17 05/27/17 History 2000 mg Cyclobenzaprine [Flexeril 10 MG 10 mg PO TID PRN 05/28/17 05/28/17 05/27/17 History TAB] Simvastatin (Nf) [Zocor TAB] 20 mg PO QHS 05/28/17 05/28/17 05/27/17 History clonazePAM [KlonoPIN] 2 mg PO QPM 05/28/17 05/28/17 05/27/17 History clonazePAM [Klonopin] 1 mg PO QAM 05/28/17 05/28/17 05/27/17 History Metoprolol Xl [Metoprolol 75 mg PO QDAY #30 tablet 05/30/17 Unknown Rx SUCCINATE ER TAB] HYDROcodone/APAP 5-325 [[place] 1 each PO Q6HR PRN #12 tablet 05/31/17 Unknown Rx 5/325] Metoclopramide HCl [Reglan TAB] 5 mg PO TIDAC #20 tablet 05/31/17 Unknown Rx Cyclobenzaprine HCl [Flexeril 5 MG 5 mg PO BID #10 tab 06/02/17 Unknown Rx TAB] Ibuprofen [Motrin] 600 mg PO Q8H PRN #30 tablet 06/02/17 Unknown Rx Nystas/Diphen/Xyl Visc/Mylanta 15 ml MM Q8H PRN 10 Days udc 06/02/17 Unknown Rx [Magic Mouthwash] Amoxicillin/K Clav Tab [Augmentin 1 tab PO Q12HR #20 tab 08/11/18 Unknown Rx 875MG TAB] Cetirizine HCl [ZyrTEC] 10 mg PO QAM 14 Days #14 capsule 08/11/18 Unknown Rx Fluticasone [Flonase] 1 spray NS QDAY 14 Days #1 bottle 08/11/18 Unknown Rx Meclizine [Antivert] 25 mg PO Q8H PRN #12 tablet 08/11/18 Unknown Rx Ondansetron [Zofran ODT TAB] 8 mg PO Q8HR PRN #12 tab.rapdis 08/11/18 Unknown Rx traMADoL [Ultram 50 MG tab] 50 mg PO Q6HR PRN #12 tablet 08/11/18 Unknown Rx methOCARBAMOL [Robaxin TAB] 500 mg PO Q6H PRN #20 tablet 09/30/20 Unknown Rx HYDROcodone/APAP 5-325 [[place] 1 each PO Q6HR PRN #15 tablet 10/20/20 Unknown Rx 5/325] ED Physical Exam - General Limitations: No Limitations General appearance: alert, in no apparent distress - Head Head exam: Present: atraumatic, normocephalic - Eye Eye exam: Present: normal appearance - ENT ENT exam: Present: mucous membranes moist - Neck Neck exam: Present: normal inspection, full ROM - Respiratory Respiratory exam: Present: normal lung sounds bilaterally. Absent: respiratory distress, wheezes, rales, rhonchi - Cardiovascular Cardiovascular Exam: Present: regular rate, normal rhythm, normal heart sounds. Absent: systolic murmur, diastolic murmur, rubs, gallop - GI/Abdominal GI/Abdominal exam: Present: soft, normal bowel sounds. Absent: distended, tenderness, guarding, rebound - Extremities Exam Extremities exam: Present: normal inspection - Neurological Exam Neurological exam: Present: alert, oriented X3 - Psychiatric Psychiatric exam: Present: normal affect, normal mood - Skin Skin exam: Present: warm, dry, intact, normal color. Absent: rash ED Course Vital Signs 10/20/20 11:25 Temperature 97.8 F Pulse Rate 86 Respiratory 20 Rate Blood Pressure 132/68 O2 Sat by Pulse 95 Oximetry ED Medical Decision Making - Lab Data Result diagrams: 10/20/20 12:19 10/20/20 12:19 - EKG Data -: EKG Interpreted by Me EKG shows normal: sinus rhythm, axis, intervals Rate: normal - EKG Data 10/20/20 16:37 EKG obtained 1120 EKG interpreted by me Normal sinus rhythm rate 90 bpm normal axis normal intervals no ST elevation poor R wave progression in anterior leads - Radiology Data Radiology results: report reviewed Chest radiographs 2 views: No acute findings according radiology impression - Medical Decision Making 1. Fall resulting in cervical strain, lumbar strain, right-sided rotator cuff injury, chest wall pain. No indication of ACS. Patient was prescribed [place]. She stated that ibuprofen at home did not provide any relief. She was referred to orthopedic surgeon. Critical care attestation.: If time is entered above; I have spent that time in minutes in the direct care of this critically ill patient, excluding procedure time. ED Disposition Clinical Impression: Chest wall pain, Cervical strain, Lumbar strain, Hx of fall, Injury of right rotator cuff Disposition: DC-01 TO HOME OR SELFCARE Is pt being admited?: No Does the pt Need Aspirin: No Condition: Stable Instructions: Muscle Strain, [id number] Prescriptions: HYDROcodone/APAP 5-325 [W[place] 5/325] 1 each PO Q6HR PRN #15 tablet PRN Reason: Pain Referrals: YOHANA ACEVEDO NP-C [Primary Care Provider] - 3-5 Days BLAISE BEACH MD [Staff Physician] - 3-5 Days
[2020-10-20 17:02] VITALS: BP 111/73
[2020-10-20] MEDS ORDERED: ONDANSETRON 4 MG ODT TAB PO ONE (17:33)
--- NOTE | 2020-10-21 08:32 | Electrocardiograph Report ---
[facility] Test Date: 2020-10-20 Test Time: 11:20:10 Pat Name: CHINO OLSEN Department: Room: Gender: F Strawhat Sizer: ALEXANDRO : 1960 Requested By: ROLAND FOLEY Order Number: [id number] Reading MD: Kevin Chaudhary Measurements Intervals [place] Rate: 87 P: 52 NE: 121 QRS: -2 QRSD: 78 T: 7 QT: 370 QTc: 446 Interpretive Statements Sinus rhythm Probable anteroseptal infarct, old Compared to ECG 09/30/2020 10:06:18 Sinus arrhythmia no longer present Myocardial infarct finding still present Electronically Signed On 10-21-2020 8:31:30 EDT by Kevin Chaudhary
== END 2020-10-20 17:35 | disposition home or self-care (01) ==
LOC: ED 11:14
DX: S39.012A Strain of muscle, fascia and tendon of lower back, initial encounter (principal); S16.1XXA Strain of muscle, fascia and tendon at neck level, initial encounter; S46.001A Unspecified injury of muscle(s) and tendon(s) of the rotator cuff of right shoulder, initial encounter; R07.89 Other chest pain; E11.9 Type 2 diabetes mellitus without complications; M19.91 Primary osteoarthritis, unspecified site; F41.9 Anxiety disorder, unspecified; Z90.710 Acquired absence of both cervix and uterus; Z98.890 Other specified postprocedural states; Z79.1 Long term (current) use of non-steroidal anti-inflammatories (NSAID); Z79.2 Long term (current) use of antibiotics; Z79.84 Long term (current) use of oral hypoglycemic drugs; Z79.899 Other long term (current) drug therapy; Z88.8 Allergy status to other drugs, medicaments and biological substances; W01.0XXA Fall on same level from slipping, tripping and stumbling without subsequent striking against object, initial encounter; Y93.89 Activity, other specified; Y92.89 Other specified places as the place of occurrence of the external cause; Y99.8 Other external cause status
CPT/HCPCS: 36415; 71046; 80053; 84484; 85025; 85610; 85730; 93005; 96372; 99284; J1885

== ENCOUNTER 2021-05-01 05:03 | Emergency (ER) | payer MEDICARE ==
--- NOTE | 2021-05-01 05:16 | Event Note ---
ED Screening Note ED Screening Note: Is a 58-year-old female with history of diabetes mellitus on Metformin and glipizide with intra-abdominal status. noticed that she was making loud noises while sleeping. When he awakened her, she was nonverbal. Blood glucose 52 per EMS. Patient received 1 1/2 mL of D 25. Patient became responsive shortly thereafter. Patient now has left lower quadrant pain. She was in her normal health when she went to sleep. She took 2000 mg of Metformin and 10 mg of glipizide this evening. This initial assessment/diagnostic orders/clinical plan/treatment(s) is/are subject to change based on patients health status, clinical progression and re- assessment by fellow clinical providers in the ED. Further treatment and workup at subsequent clinical providers discretion. Patient/guardian urged not to elope from the ED as their condition may be serious if not clinically assessed and managed.
[2021-05-01 06:19] LABS: Basophils % (Auto) 0.4 % (0.0-1.8); Eosinophils # (Auto) 0.2 K/mm3 (0.0-0.4); Eosinophils % (Auto) 5.2 % (0.0-4.3); Hematocrit 31.3 % (30.3-42.9); Hemoglobin 9.9 gm/dl (10.1-14.3); Lymphocytes # (Auto) 0.9 K/mm3 (1.2-5.4); Lymphocytes % (Auto) 19.2 % (13.4-35.0); Mean Corpuscular HGB Conc 32 % (30-34); Mean Corpuscular Volume 83 fl (79-97); Monocytes # (Auto) 0.3 K/mm3 (0.0-0.8); Monocytes % (Auto) 6.5 % (0.0-7.3); Platelet Count 231 K/mm3 (140-440); Red Blood Count 3.79 M/mm3 (3.65-5.03); Red Cell Distribution Width 17.5 % (13.2-15.2)
--- NOTE | 2021-05-01 06:32 | Emergency Department Report ---
ED General Adult HPI - General Chief complaint: Hypoglycemia Stated complaint: LOW BLOOD SUGAR Time Seen by Provider: 05/01/21 06:04 Source: EMS Mode of arrival: Stretcher Limitations: No Limitations - History of Present Illness Initial comments: 60-year-old female, history of diabetes, presents to ED for hypoglycemia. Prior to my arrival, patient was screened by my colleague. Apparently, patient noticed that patient was making loud noises while asleep. He woke up the patient , however, patient was nonverbal. EMS was called, glucose found to be 52. Patient was given D25 by EMS and became responsive afterward. Repeat Accu-Chek currently 91. Patient believes her glucose may have dropped because she only ate a salad on yesterday. Patient reports she took her Metformin and glipizide. Patient states she has been on both medications for years. Patient initially told my colleague because she was having left lower quadrant pain. H owever when I speak with patient she reports that she is actually having pain in her right hip. She denies any known trauma. She denies any chronic pain to the hip. -: This morning Location: right, lower extremity Quality: aching Consistency: constant Improves with: immobilization Worsens with: movement Associated Symptoms: denies: chest pain, cough, fever/chills, headaches, nausea/vomiting, shortness of breath Treatments Prior to Arrival: other (D25) - Related Data Home Medications Medication Instructions Recorded Confirmed Last Taken metFORMIN [Glucophage] 1,000 mg PO BID 06/18/13 05/28/17 05/27/17 2000 mg Cyclobenzaprine [Flexeril 10 MG 10 mg PO TID PRN 05/28/17 05/28/17 05/27/17 TAB] Simvastatin (Nf) [Zocor TAB] 20 mg PO QHS 05/28/17 05/28/17 05/27/17 clonazePAM [KlonoPIN] 2 mg PO QPM 05/28/17 05/28/17 05/27/17 clonazePAM [Klonopin] 1 mg PO QAM 05/28/17 05/28/17 05/27/17 Previous Rx's Medication Instructions Recorded Last Taken Type Metoprolol Xl [Metoprolol 75 mg PO QDAY #30 tablet 05/30/17 Unknown Rx SUCCINATE ER TAB] HYDROcodone/APAP 5-325 [[place] 1 each PO Q6HR PRN #12 tablet 05/31/17 Unknown Rx 5/325] Metoclopramide HCl [Reglan TAB] 5 mg PO TIDAC #20 tablet 05/31/17 Unknown Rx Cyclobenzaprine HCl [Flexeril 5 MG 5 mg PO BID #10 tab 06/02/17 Unknown Rx TAB] Ibuprofen [Motrin] 600 mg PO Q8H PRN #30 tablet 06/02/17 Unknown Rx Nystas/Diphen/Xyl Visc/Mylanta 15 ml MM Q8H PRN 10 Days udc 06/02/17 Unknown Rx [Magic Mouthwash] Amoxicillin/K Clav Tab [Augmentin 1 tab PO Q12HR #20 tab 08/11/18 Unknown Rx 875MG TAB] Cetirizine HCl [ZyrTEC] 10 mg PO QAM 14 Days #14 capsule 08/11/18 Unknown Rx Fluticasone [Flonase] 1 spray NS QDAY 14 Days #1 bottle 08/11/18 Unknown Rx Meclizine [Antivert] 25 mg PO Q8H PRN #12 tablet 08/11/18 Unknown Rx Ondansetron [Zofran ODT TAB] 8 mg PO Q8HR PRN #12 tab.rapdis 08/11/18 Unknown Rx traMADoL [Ultram 50 MG tab] 50 mg PO Q6HR PRN #12 tablet 08/11/18 Unknown Rx methOCARBAMOL [Robaxin TAB] 500 mg PO Q6H PRN #20 tablet 09/30/20 Unknown Rx HYDROcodone/APAP 5-325 [[place] 1 each PO Q6HR PRN #15 tablet 10/20/20 Unknown Rx 5/325] Ondansetron [Zofran Odt] 4 mg PO Q8HR PRN #10 tab.rapdis 10/20/20 Unknown Rx Cyclobenzaprine HCl [Flexeril 5 MG 5 mg PO BID #10 tablet 05/01/21 Unknown Rx TAB] Allergies Allergy/AdvReac Type Severity Reaction Status Date / Time codeine AdvReac Mild Nausea Verified 05/01/21 05:21 ED Review of Systems ROS: Stated complaint: LOW BLOOD SUGAR Other details as noted in HPI Comment: All other systems reviewed and negative Constitutional: denies: fever Respiratory: denies: shortness of breath Cardiovascular: denies: chest pain Gastrointestinal: denies: abdominal pain, nausea, vomiting Musculoskeletal: as per HPI Neurological: denies: headache ED Past Medical Hx - Past Medical History Hx Hypertension: No Hx CVA: No Hx Heart Attack/AMI: No Hx Congestive Heart Failure: No Hx Diabetes: Yes Hx Deep Vein Thrombosis: No Hx Pulmonary Embolism: No Hx GERD: No Hx Liver Disease: No Hx Renal Disease: No Hx Sickle Cell Disease: No Hx Arthritis: Yes Hx Headaches / Migraines: No Hx Seizures: No Hx Kidney Stones: No Hx Psychiatric Treatment: Yes (anxiety) Hx Asthma: No Hx COPD: No Hx Dementia: No Hx HIV: No Additional medical history: A fib. High cholesterol - Surgical History Hx Coronary Stent: No Hx Open Heart Surgery: No Hx Pacemaker: No Hx Internal Defibrillator: No Hx Cholecystectomy: No Hx Appendectomy: No Hx Breast Surgery: No Additional Surgical History: cardiac ablation. c section x 3, hysterectomy. right knee replacment 06/13 - Social History Smoking Status: Never Smoker Substance Use Type: None - Medications Home Medications: Home Medications Medication Instructions Recorded Confirmed Last Taken Type metFORMIN [Glucophage] 1,000 mg PO BID 06/18/13 05/28/17 05/27/17 History 2000 mg Cyclobenzaprine [Flexeril 10 MG 10 mg PO TID PRN 05/28/17 05/28/17 05/27/17 History TAB] Simvastatin (Nf) [Zocor TAB] 20 mg PO QHS 05/28/17 05/28/17 05/27/17 History clonazePAM [KlonoPIN] 2 mg PO QPM 05/28/17 05/28/17 05/27/17 History clonazePAM [Klonopin] 1 mg PO QAM 05/28/17 05/28/17 05/27/17 History Metoprolol Xl [Metoprolol 75 mg PO QDAY #30 tablet 05/30/17 Unknown Rx SUCCINATE ER TAB] HYDROcodone/APAP 5-325 [[place] 1 each PO Q6HR PRN #12 tablet 05/31/17 Unknown Rx 5/325] Metoclopramide HCl [Reglan TAB] 5 mg PO TIDAC #20 tablet 05/31/17 Unknown Rx Cyclobenzaprine HCl [Flexeril 5 MG 5 mg PO BID #10 tab 06/02/17 Unknown Rx TAB] Ibuprofen [Motrin] 600 mg PO Q8H PRN #30 tablet 06/02/17 Unknown Rx Nystas/Diphen/Xyl Visc/Mylanta 15 ml MM Q8H PRN 10 Days udc 06/02/17 Unknown Rx [Magic Mouthwash] Amoxicillin/K Clav Tab [Augmentin 1 tab PO Q12HR #20 tab 08/11/18 Unknown Rx 875MG TAB] Cetirizine HCl [ZyrTEC] 10 mg PO QAM 14 Days #14 capsule 08/11/18 Unknown Rx Fluticasone [Flonase] 1 spray NS QDAY 14 Days #1 bottle 08/11/18 Unknown Rx Meclizine [Antivert] 25 mg PO Q8H PRN #12 tablet 08/11/18 Unknown Rx Ondansetron [Zofran ODT TAB] 8 mg PO Q8HR PRN #12 tab.rapdis 08/11/18 Unknown Rx traMADoL [Ultram 50 MG tab] 50 mg PO Q6HR PRN #12 tablet 08/11/18 Unknown Rx methOCARBAMOL [Robaxin TAB] 500 mg PO Q6H PRN #20 tablet 09/30/20 Unknown Rx HYDROcodone/APAP 5-325 [[place] 1 each PO Q6HR PRN #15 tablet 10/20/20 Unknown Rx 5/325] Ondansetron [Zofran Odt] 4 mg PO Q8HR PRN #10 tab.rapdis 10/20/20 Unknown Rx Cyclobenzaprine HCl [Flexeril 5 MG 5 mg PO BID #10 tablet 05/01/21 Unknown Rx TAB] ED Physical Exam - General Limitations: No Limitations General appearance: alert, in no apparent distress - Head Head exam: Present: atraumatic, normocephalic - Eye Eye exam: Present: normal appearance, EOMI - ENT ENT exam: Present: mucous membranes moist - Neck Neck exam: Present: normal inspection - Respiratory Respiratory exam: Present: normal lung sounds bilaterally. Absent: respiratory distress - Cardiovascular Cardiovascular Exam: Present: regular rate, normal rhythm - GI/Abdominal GI/Abdominal exam: Present: soft. Absent: distended, tenderness - Extremities Exam Extremities exam: Present: normal inspection, tenderness (to the right hip, no bruising present) - Neurological Exam Neurological exam: Present: alert, oriented X3 - Psychiatric Psychiatric exam: Present: normal affect, normal mood - Skin Skin exam: Present: warm, dry, intact, normal color ED Course Vital Signs 05/01/21 05/01/21 05/01/21 05:22 07:51 08:44 Temperature 97.7 F 97.9 F Pulse Rate 75 68 Respiratory 13 16 Rate Blood Pressure 124/78 120/72 [Right] O2 Sat by Pulse 99 100 99 Oximetry - Reevaluation(s) Reevaluation #1: 05/01/21 08:20 Patient reports to me that she did not take that. States that Motrin tends to upset her stomach. Asked patient if she would like Tylenol, patient declines. States she will just take something when she gets home. ED Medical Decision Making - Lab Data Result diagrams: 05/01/21 05:27 05/01/21 05:27 - Radiology Data Radiology results: report reviewed, image reviewed - Medical Decision Making 60-year-old female presents to ED for episode of hypoglycemia. Patient was given D25 in route by EMS. Patient has been awake and alert during entire ED visit. She complained of some right hip pain. She reports history of right knee replacement in the past. X-ray is unremarkable. She was also given a food tray here in the ED, which she finished. Repeat Accu-Chek is 83. Patient advised not to take her glipizide today. Patient advised to eat several meals a day as well. Outpatient follow-up advised, return precautions given. - Differential Diagnosis Hyperglycemia, fracture, sprain Critical care attestation.: If time is entered above; I have spent that time in minutes in the direct care of this critically ill patient, excluding procedure time. ED Disposition Clinical Impression: Hypoglycemia, Right hip pain Disposition: HOME / SELF CARE / HOMELESS Is pt being admited?: No Condition: Stable Instructions: Hip Pain, Hypoglycemia, [id number] Additional Instructions: Do not take your glipizide today. Eat full meals today. Prescriptions: Cyclobenzaprine HCl [Flexeril 5 MG TAB] 5 mg PO BID #10 tablet Referrals: BLAISE BEACH MD [Staff Physician] - 3-5 Days PRIMARY CARE, [Primary Care Provider] - 3-5 Days Time of Disposition: 08:20
[2021-05-01 06:34] LABS: BUN/Creatinine Ratio 28; Blood Urea Nitrogen 22 mg/dL (7-17); Hemolysis Index 33
[2021-05-01] MEDS: IBUPROFEN 800 MG TAB PO ONE ×2 (06:34→06:40)
--- NOTE | 2021-05-01 06:50 | XRay Report ---
RIGHT HIP AND PELVIS 2 VIEWS INDICATION: pain; RT HIP PAIN. COMPARISON: No relevant prior imaging study available. FINDINGS: No acute skeletal abnormality. There is mild osteoarthrosis of the hips and pubic symphysis. No femor al head osteonecrosis. IMPRESSION: 1. No acute findings. Signer Name: Flex Aldana MD Signed: 05/01/2021 6:45 AM Workstation Name: [id number]
[2021-05-01 08:45] VITALS: BP 120/72
== END 2021-05-01 08:45 | disposition home or self-care (01) ==
LOC: ED 05:03
DX: E11.649 Type 2 diabetes mellitus with hypoglycemia without coma (principal); M25.551 Pain in right hip
CPT/HCPCS: 36415; 80048; 82962; 85025; 99284

== ENCOUNTER 2021-09-18 16:07 | Emergency (ER) | payer MEDICARE ==
[2021-09-18] MEDS ORDERED: KETOROLAC 60 MG/2 ML INJ IM ONE ×2 (17:41→19:24)
[2021-09-18] MEDS ORDERED: IBUPROFEN 800 MG TAB PO ONE (17:49)
--- NOTE | 2021-09-18 18:41 | XRay Report ---
RIGHT RIB SERIES WITH PA CHEST, 3 VIEWS INDICATION / CLINICAL INFORMATION: fall. Right rib pain COMPARISON: Prior chest radiograph 10/20/2020 FINDINGS: PA view of the chest is unremarkable. Normal heart size and pulmonary vascularity. Both lungs are wel l-expanded and clear. No pneumothorax or pleural effusion. The right ribs are intact and without visible fracture. IMPRESSION: 1. No visible right rib fracture. 2. No acute pulmonary disease. 3. Incidental note is made of mild scoliosis. Signer Name: Kae Hdez MD Signed: 09/18/2021 6:37 PM Workstation Name: [id number]
--- NOTE | 2021-09-18 18:44 | XRay Report ---
BILATERAL HANDS, 6 VIEWS INDICATION / CLINICAL INFORMATION: fall. Pain COMPARISON: None available. FINDINGS: Right hand: No fracture or dislocation. No significant soft tissue abnormality identified. Mild degen erative changes are present throughout the interphalangeal joints. Left hand: No fracture or dislocation. No significant soft tissue abnormality. Mild degenerative lopez ges are seen to the interphalangeal joints. IMPRESSION: No fracture or dislocation noted within either hand. Signer Name: Kae Hdez MD Signed: 09/18/2021 6:39 PM Workstation Name: [id number]
--- NOTE | 2021-09-18 18:46 | XRay Report ---
RIGHT SHOULDER 3 VIEWS INDICATION / CLINICAL INFORMATION: fall. Shoulder pain COMPARISON: None available. FINDINGS: No fracture or dislocation. Minimal degenerative change of the AC joint. No soft tissue abnormality. Visualized right ribs are intact. IMPRESSION: No fracture or dislocation. Signer Name: Kae Hdez MD Signed: 09/18/2021 6:41 PM Workstation Name: [id number]
--- NOTE | 2021-09-18 18:46 | XRay Report ---
RIGHT HIP, 2 VIEW INDICATION / CLINICAL INFORMATION: fall. Pain COMPARISON: None available. FINDINGS: 2 views of the right hip were obtained and do not show any fracture or dislocation of the right hip o r pelvis. IMPRESSION: Negative exam. Signer Name: Kae Hdez MD Signed: 09/18/2021 6:42 PM Workstation Name: [id number]
--- NOTE | 2021-09-18 18:55 | Emergency Department Report ---
ED Fall HPI - General Chief Complaint: Fall Stated Complaint: FALL LT AND RT SIDE BRUISE /FACE Time Seen by Provider: 09/18/21 17:18 Source: patient Mode of arrival: Ambulatory - History of Present Illness Initial Comments: pt presents to ed with complaint of body aches from fall fell on her driveway today while getting her mail, no head injury no loc -: Sudden, hour(s) Fall From: standing When Fall Occurred: 4-6 hours [employer] Fall Witnessed: no Place Fall Occurred: home Loss of Consciousness: none Prolonged Down Time?: no Severity scale (0 -10): 4 Quality: dull, aching Associated Symptoms: denies: headache, chest paint, lightheaded, vertigo, confusion - Related Data Home Medications Medication Instructions Recorded Confirmed Last Taken metFORMIN [Glucophage] 1,000 mg PO BID 06/18/13 05/28/17 05/27/17 2000 mg Cyclobenzaprine [Flexeril 10 MG 10 mg PO TID PRN 05/28/17 05/28/17 05/27/17 TAB] Simvastatin (Nf) [Zocor TAB] 20 mg PO QHS 05/28/17 05/28/17 05/27/17 clonazePAM [KlonoPIN] 2 mg PO QPM 05/28/17 05/28/17 05/27/17 clonazePAM [Klonopin] 1 mg PO QAM 05/28/17 05/28/17 05/27/17 Previous Rx's Medication Instructions Recorded Last Taken Type Metoprolol Xl [Metoprolol 75 mg PO QDAY #30 tablet 05/30/17 Unknown Rx SUCCINATE ER TAB] HYDROcodone/APAP 5-325 [[place] 1 each PO Q6HR PRN #12 tablet 05/31/17 Unknown Rx 5/325] Metoclopramide HCl [Reglan TAB] 5 mg PO TIDAC #20 tablet 05/31/17 Unknown Rx Cyclobenzaprine HCl [Flexeril 5 MG 5 mg PO BID #10 tab 06/02/17 Unknown Rx TAB] Ibuprofen [Motrin] 600 mg PO Q8H PRN #30 tablet 06/02/17 Unknown Rx Nystas/Diphen/Xyl Visc/Mylanta 15 ml MM Q8H PRN 10 Days udc 06/02/17 Unknown Rx [Magic Mouthwash] Amoxicillin/K Clav Tab [Augmentin 1 tab PO Q12HR #20 tab 08/11/18 Unknown Rx 875MG TAB] Cetirizine HCl [ZyrTEC] 10 mg PO QAM 14 Days #14 capsule 08/11/18 Unknown Rx Fluticasone [Flonase] 1 spray NS QDAY 14 Days #1 bottle 08/11/18 Unknown Rx Meclizine [Antivert] 25 mg PO Q8H PRN #12 tablet 08/11/18 Unknown Rx Ondansetron [Zofran ODT TAB] 8 mg PO Q8HR PRN #12 tab.rapdis 08/11/18 Unknown Rx traMADoL [Ultram 50 MG tab] 50 mg PO Q6HR PRN #12 tablet 08/11/18 Unknown Rx methOCARBAMOL [Robaxin TAB] 500 mg PO Q6H PRN #20 tablet 09/30/20 Unknown Rx HYDROcodone/APAP 5-325 [[place] 1 each PO Q6HR PRN #15 tablet 10/20/20 Unknown Rx 5/325] Ondansetron [Zofran Odt] 4 mg PO Q8HR PRN #10 tab.rapdis 10/20/20 Unknown Rx Cyclobenzaprine HCl [Flexeril 5 MG 5 mg PO BID #10 tablet 05/01/21 Unknown Rx TAB] Allergies Allergy/AdvReac Type Severity Reaction Status Date / Time codeine AdvReac Mild Nausea Verified 09/18/21 16:55 ED Review of Systems ROS: Stated complaint: FALL LT AND RT SIDE BRUISE /FACE Other details as noted in HPI Constitutional: denies: chills, fever Eyes: denies: eye pain, eye discharge, vision change ENT: denies: ear pain, throat pain Respiratory: denies: cough, shortness of breath, wheezing Cardiovascular: denies: chest pain, palpitations Endocrine: no symptoms reported Gastrointestinal: denies: abdominal pain, nausea, diarrhea Genitourinary: denies: urgency, dysuria, discharge Musculoskeletal: denies: back pain, joint swelling, arthralgia Skin: denies: rash, lesions Neurological: denies: headache, weakness, paresthesias Psychiatric: denies: anxiety, depression Hematological/Lymphatic: denies: easy bleeding, easy bruising ED Past Medical Hx - Past Medical History Hx Hypertension: No Hx CVA: No Hx Heart Attack/AMI: No Hx Congestive Heart Failure: No Hx Diabetes: Yes Hx Deep Vein Thrombosis: No Hx Pulmonary Embolism: No Hx GERD: No Hx Liver Disease: No Hx Renal Disease: No Hx Sickle Cell Disease: No Hx Arthritis: Yes Hx Headaches / Migraines: No Hx Seizures: No Hx Kidney Stones: No Hx Psychiatric Treatment: Yes (anxiety) Hx Asthma: No Hx COPD: No Hx Dementia: No Hx HIV: No Additional medical history: A fib. High cholesterol - Surgical History Hx Coronary Stent: No Hx Open Heart Surgery: No Hx Pacemaker: No Hx Internal Defibrillator: No Hx Cholecystectomy: No Hx Appendectomy: No Hx Breast Surgery: No Additional Surgical History: cardiac ablation. c section x 3, hysterectomy. right knee replacment 06/13 - Social History Smoking Status: Never Smoker Substance Use Type: None - Medications Home Medications: Home Medications Medication Instructions Recorded Confirmed Last Taken Type metFORMIN [Glucophage] 1,000 mg PO BID 06/18/13 05/28/17 05/27/17 History 2000 mg Cyclobenzaprine [Flexeril 10 MG 10 mg PO TID PRN 05/28/17 05/28/17 05/27/17 History TAB] Simvastatin (Nf) [Zocor TAB] 20 mg PO QHS 05/28/17 05/28/17 05/27/17 History clonazePAM [KlonoPIN] 2 mg PO QPM 05/28/17 05/28/17 05/27/17 History clonazePAM [Klonopin] 1 mg PO QAM 05/28/17 05/28/17 05/27/17 History Metoprolol Xl [Metoprolol 75 mg PO QDAY #30 tablet 05/30/17 Unknown Rx SUCCINATE ER TAB] HYDROcodone/APAP 5-325 [[place] 1 each PO Q6HR PRN #12 tablet 05/31/17 Unknown Rx 5/325] Metoclopramide HCl [Reglan TAB] 5 mg PO TIDAC #20 tablet 05/31/17 Unknown Rx Cyclobenzaprine HCl [Flexeril 5 MG 5 mg PO BID #10 tab 06/02/17 Unknown Rx TAB] Ibuprofen [Motrin] 600 mg PO Q8H PRN #30 tablet 06/02/17 Unknown Rx Nystas/Diphen/Xyl Visc/Mylanta 15 ml MM Q8H PRN 10 Days udc 06/02/17 Unknown Rx [Magic Mouthwash] Amoxicillin/K Clav Tab [Augmentin 1 tab PO Q12HR #20 tab 08/11/18 Unknown Rx 875MG TAB] Cetirizine HCl [ZyrTEC] 10 mg PO QAM 14 Days #14 capsule 08/11/18 Unknown Rx Fluticasone [Flonase] 1 spray NS QDAY 14 Days #1 bottle 08/11/18 Unknown Rx Meclizine [Antivert] 25 mg PO Q8H PRN #12 tablet 08/11/18 Unknown Rx Ondansetron [Zofran ODT TAB] 8 mg PO Q8HR PRN #12 tab.rapdis 08/11/18 Unknown Rx traMADoL [Ultram 50 MG tab] 50 mg PO Q6HR PRN #12 tablet 08/11/18 Unknown Rx methOCARBAMOL [Robaxin TAB] 500 mg PO Q6H PRN #20 tablet 09/30/20 Unknown Rx HYDROcodone/APAP 5-325 [[place] 1 each PO Q6HR PRN #15 tablet 10/20/20 Unknown Rx 5/325] Ondansetron [Zofran Odt] 4 mg PO Q8HR PRN #10 tab.rapdis 10/20/20 Unknown Rx Cyclobenzaprine HCl [Flexeril 5 MG 5 mg PO BID #10 tablet 05/01/21 Unknown Rx TAB] ED Physical Exam - General Limitations: No Limitations General appearance: alert, in no apparent distress - Head Head exam: Present: atraumatic, normocephalic - Eye Eye exam: Present: normal appearance - ENT ENT exam: Present: mucous membranes moist - Neck Neck exam: Present: normal inspection - Respiratory Respiratory exam: Present: normal lung sounds bilaterally. Absent: respiratory distress - Cardiovascular Cardiovascular Exam: Present: regular rate, normal rhythm. Absent: systolic murmur, diastolic murmur, rubs, gallop - GI/Abdominal GI/Abdominal exam: Present: soft, normal bowel sounds - Extremities Exam Extremities exam: Present: normal inspection - Expanded Upper Extremity Exam Right Shoulder Exam: Present: tenderness Hand Wrist exam: Present: tenderness, ecchymosis Left Hand Wrist exam: Present: tenderness, ecchymosis - Back Exam Back exam: Present: normal inspection - Neurological Exam Neurological exam: Present: alert, oriented X3 - Psychiatric Psychiatric exam: Present: normal affect, normal mood - Skin Skin exam: Present: warm, dry, intact, normal color. Absent: rash ED Course Vital Signs 09/18/21 09/18/21 09/18/21 16:22 16:50 16:52 Temperature 97.3 F L 98.8 F 98.8 F Pulse Rate 73 77 77 Respiratory 16 20 20 Rate Blood Pressure 128/86 Blood Pressure 113/70 128/86 [Left] O2 Sat by Pulse 99 100 100 Oximetry Critical care attestation.: If time is entered above; I have spent that time in minutes in the direct care of this critically ill patient, excluding procedure time. ED Disposition Clinical Impression: Fall, Contusion of right shoulder, Chest wall contusion, Sprain of right hip, Hand contusion Disposition: 01 HOME / SELF CARE / HOMELESS Is pt being admited?: No Does the pt Need Aspirin: No Condition: Stable Instructions: Blunt Chest Trauma, Hip Sprain, Contusion, [id number], Contusion, Hand Contusion, [id number] Referrals: PRIMARY CARE, [Primary Care Provider] - 3-5 Days
[2021-09-18 19:04] VITALS: BP 116/55
== END 2021-09-18 19:47 | disposition home or self-care (01) ==
LOC: ED 16:07
DX: S73.101A Unspecified sprain of right hip, initial encounter (principal); S40.011A Contusion of right shoulder, initial encounter; S20.20XA Contusion of thorax, unspecified, initial encounter; S60.229A Contusion of unspecified hand, initial encounter; W19.XXXA Unspecified fall, initial encounter; Z88.5 Allergy status to narcotic agent; Y93.89 Activity, other specified; Y92.89 Other specified places as the place of occurrence of the external cause; Y99.8 Other external cause status
CPT/HCPCS: 71101; 73030; 73130; 73502; 96372; 99283; J1885

== ENCOUNTER 2021-09-27 10:10 | Emergency (ER) | payer MEDICARE ==
--- NOTE | 2021-09-27 11:45 | Cat Scan Report ---
CT ABDOMEN AND PELVIS WITHOUT CONTRAST HISTORY: ABD PAIN COMPARISON: CT on 12/15/2018 TECHNIQUE: Routine abdominal and pelvic CT exam performed without contrast. Lack of intravenous cont rast limits evaluation of the vascular and solid organs.. All CT scans at this location are performed using CT dose reduction for ALARA by means of automated exposure control. FINDINGS: CT ABDOMEN: Lung Bases: No significant abnormality. Liver: No significant abnormality. Biliary: No significant abnormality. Spleen: No significant abnormality. Unenlarged. Pancreas: No significant abnormality. Adrenals: No significant abnormality. Kidneys: No significant abnormality. Lymphatics: No lymphadenopathy. Vasculature: No significant abnormality. Bowel/Peritoneum: No significant abnormality. No free air. No free fluid. CT PELVIC: : No acute findings. Uterus surgically absent. Unchanged right gluteus andriy intramuscular lipoma . Lymphatics: No lymphadenopathy. Osseous Structures: No aggressive appearing osseous lesions. Additional Findings: None IMPRESSION: 1. No acute findings or findings to explain the patient's symptoms. Signer Name: Misael Jacobs MD Signed: 09/27/2021 11:40 AM Workstation Name: [id number]
--- NOTE | 2021-09-27 11:54 | Emergency Department Report ---
ED Abdominal Pain HPI - General Chief Complaint: Abdominal Pain Stated Complaint: KNOT ABOVE NAVEL AREA Time Seen by Provider: 09/27/21 11:12 Source: patient Mode of arrival: Ambulatory Limitations: No Limitations - History of Present Illness Initial Comments: Patient is a 61-year-old female that comes to the emergency room complaining of a knot right above her umbilicus. She states that she has had this for several months. She notices it when she is washing dishes and leans up against a counter. She keeps rubbing the area and I suspect some of her pain is from her obsession with rubbing and attempting to what she says grabbed a knot. She has been to her primary care and they told her that nothing was wrong. She has had 3 prior C-sections. She is obese and has a lot of excess skin. She has no nausea or vomiting. No fever or chills. No diarrhea or constipation. She has no history of cancer. The pain does not wake her from sleep. Patient is in no acute distress on arrival to the emergency room. I am unable to palpate a hernia or masses patient indicates. MD Complaint: abdominal pain -: month(s) Quality: aching Consistency: intermittent Worsens With: nothing Associated Symptoms: denies other symptoms. denies: nausea, vomiting, diarrhea, fever, chills, constipation, dysuria, hematemesis, hematochezia, melena, hematuria, anorexia, syncope - Related Data Home Medications Medication Instructions Recorded Confirmed Last Taken metFORMIN [Glucophage] 1,000 mg PO BID 06/18/13 05/28/17 05/27/17 2000 mg Cyclobenzaprine [Flexeril 10 MG 10 mg PO TID PRN 05/28/17 05/28/17 05/27/17 TAB] Simvastatin (Nf) [Zocor TAB] 20 mg PO QHS 05/28/17 05/28/17 05/27/17 clonazePAM [KlonoPIN] 2 mg PO QPM 05/28/17 05/28/17 05/27/17 clonazePAM [Klonopin] 1 mg PO QAM 05/28/17 05/28/17 05/27/17 Previous Rx's Medication Instructions Recorded Last Taken Type Metoprolol Xl [Metoprolol 75 mg PO QDAY #30 tablet 05/30/17 Unknown Rx SUCCINATE ER TAB] HYDROcodone/APAP 5-325 [[place] 1 each PO Q6HR PRN #12 tablet 05/31/17 Unknown Rx 5/325] Metoclopramide HCl [Reglan TAB] 5 mg PO TIDAC #20 tablet 05/31/17 Unknown Rx Cyclobenzaprine HCl [Flexeril 5 MG 5 mg PO BID #10 tab 06/02/17 Unknown Rx TAB] Ibuprofen [Motrin] 600 mg PO Q8H PRN #30 tablet 06/02/17 Unknown Rx Nystas/Diphen/Xyl Visc/Mylanta 15 ml MM Q8H PRN 10 Days udc 06/02/17 Unknown Rx [Magic Mouthwash] Amoxicillin/K Clav Tab [Augmentin 1 tab PO Q12HR #20 tab 08/11/18 Unknown Rx 875MG TAB] Cetirizine HCl [ZyrTEC] 10 mg PO QAM 14 Days #14 capsule 08/11/18 Unknown Rx Fluticasone [Flonase] 1 spray NS QDAY 14 Days #1 bottle 08/11/18 Unknown Rx Meclizine [Antivert] 25 mg PO Q8H PRN #12 tablet 08/11/18 Unknown Rx Ondansetron [Zofran ODT TAB] 8 mg PO Q8HR PRN #12 tab.rapdis 08/11/18 Unknown Rx traMADoL [Ultram 50 MG tab] 50 mg PO Q6HR PRN #12 tablet 08/11/18 Unknown Rx methOCARBAMOL [Robaxin TAB] 500 mg PO Q6H PRN #20 tablet 09/30/20 Unknown Rx HYDROcodone/APAP 5-325 [[place] 1 each PO Q6HR PRN #15 tablet 10/20/20 Unknown Rx 5/325] Ondansetron [Zofran Odt] 4 mg PO Q8HR PRN #10 tab.rapdis 10/20/20 Unknown Rx Cyclobenzaprine HCl [Flexeril 5 MG 5 mg PO BID #10 tablet 05/01/21 Unknown Rx TAB] Ketorolac [Toradol] 10 mg PO Q6H PRN #14 09/18/21 Unknown Rx Allergies Allergy/AdvReac Type Severity Reaction Status Date / Time codeine AdvReac Mild Nausea Verified 09/18/21 16:55 ED Review of Systems ROS: Stated complaint: KNOT ABOVE NAVEL AREA Other details as noted in HPI Comment: All other systems reviewed and negative ED Past Medical Hx - Past Medical History Hx Hypertension: No Hx CVA: No Hx Heart Attack/AMI: No Hx Congestive Heart Failure: No Hx Diabetes: Yes Hx Deep Vein Thrombosis: No Hx Pulmonary Embolism: No Hx GERD: No Hx Liver Disease: No Hx Renal Disease: No Hx Sickle Cell Disease: No Hx Arthritis: Yes Hx Headaches / Migraines: No Hx Seizures: No Hx Kidney Stones: No Hx Psychiatric Treatment: Yes (anxiety) Hx Asthma: No Hx COPD: No Hx Dementia: No Hx HIV: No Additional medical history: A fib. High cholesterol - Surgical History Past Surgical History?: Yes Hx Coronary Stent: No Hx Open Heart Surgery: No Hx Pacemaker: No Hx Internal Defibrillator: No Hx Cholecystectomy: No Hx Appendectomy: No Hx Breast Surgery: No Additional Surgical History: cardiac ablation. c section x 3, hysterectomy. right knee replacment 06/13 - Family History Family history: no significant - Social History Smoking Status: Never Smoker Substance Use Type: None - Medications Home Medications: Home Medications Medication Instructions Recorded Confirmed Last Taken Type metFORMIN [Glucophage] 1,000 mg PO BID 06/18/13 05/28/17 05/27/17 History 2000 mg Cyclobenzaprine [Flexeril 10 MG 10 mg PO TID PRN 05/28/17 05/28/17 05/27/17 History TAB] Simvastatin (Nf) [Zocor TAB] 20 mg PO QHS 05/28/17 05/28/17 05/27/17 History clonazePAM [KlonoPIN] 2 mg PO QPM 05/28/17 05/28/17 05/27/17 History clonazePAM [Klonopin] 1 mg PO QAM 05/28/17 05/28/17 05/27/17 History Metoprolol Xl [Metoprolol 75 mg PO QDAY #30 tablet 05/30/17 Unknown Rx SUCCINATE ER TAB] HYDROcodone/APAP 5-325 [[place] 1 each PO Q6HR PRN #12 tablet 05/31/17 Unknown Rx 5/325] Metoclopramide HCl [Reglan TAB] 5 mg PO TIDAC #20 tablet 05/31/17 Unknown Rx Cyclobenzaprine HCl [Flexeril 5 MG 5 mg PO BID #10 tab 06/02/17 Unknown Rx TAB] Ibuprofen [Motrin] 600 mg PO Q8H PRN #30 tablet 06/02/17 Unknown Rx Nystas/Diphen/Xyl Visc/Mylanta 15 ml MM Q8H PRN 10 Days udc 06/02/17 Unknown Rx [Magic Mouthwash] Amoxicillin/K Clav Tab [Augmentin 1 tab PO Q12HR #20 tab 08/11/18 Unknown Rx 875MG TAB] Cetirizine HCl [ZyrTEC] 10 mg PO QAM 14 Days #14 capsule 08/11/18 Unknown Rx Fluticasone [Flonase] 1 spray NS QDAY 14 Days #1 bottle 08/11/18 Unknown Rx Meclizine [Antivert] 25 mg PO Q8H PRN #12 tablet 08/11/18 Unknown Rx Ondansetron [Zofran ODT TAB] 8 mg PO Q8HR PRN #12 tab.rapdis 08/11/18 Unknown Rx traMADoL [Ultram 50 MG tab] 50 mg PO Q6HR PRN #12 tablet 08/11/18 Unknown Rx methOCARBAMOL [Robaxin TAB] 500 mg PO Q6H PRN #20 tablet 09/30/20 Unknown Rx HYDROcodone/APAP 5-325 [[place] 1 each PO Q6HR PRN #15 tablet 10/20/20 Unknown Rx 5/325] Ondansetron [Zofran Odt] 4 mg PO Q8HR PRN #10 tab.rapdis 10/20/20 Unknown Rx Cyclobenzaprine HCl [Flexeril 5 MG 5 mg PO BID #10 tablet 05/01/21 Unknown Rx TAB] Ketorolac [Toradol] 10 mg PO Q6H PRN #14 09/18/21 Unknown Rx ED Physical Exam - General Limitations: No Limitations General appearance: alert, in no apparent distress - Head Head exam: Present: atraumatic, normocephalic - Eye Eye exam: Present: normal appearance - ENT ENT exam: Present: mucous membranes moist - Neck Neck exam: Present: normal inspection - Respiratory Respiratory exam: Present: normal lung sounds bilaterally. Absent: respiratory distress - Cardiovascular Cardiovascular Exam: Present: regular rate, normal rhythm. Absent: systolic murmur, diastolic murmur, rubs, gallop - GI/Abdominal GI/Abdominal exam: Present: soft, normal bowel sounds - Extremities Exam Extremities exam: Present: normal inspection - Back Exam Back exam: Present: normal inspection - Neurological Exam Neurological exam: Present: alert, oriented X3 - Psychiatric Psychiatric exam: Present: normal affect, normal mood - Skin Skin exam: Present: warm, dry, intact, normal color. Absent: rash ED Course Vital Signs 09/27/21 09/27/21 10:55 12:12 Temperature 97.6 F 98.2 F Pulse Rate 72 88 Respiratory 18 12 Rate Blood Pressure 99/63 Blood Pressure 149/89 [Right] O2 Sat by Pulse 98 98 Oximetry ED Medical Decision Making - Radiology Data Radiology results: report reviewed, image reviewed nap - Medical Decision Making Vital Signs 09/27/21 09/27/21 10:55 12:12 Temperature 97.6 F 98.2 F Pulse Rate 72 88 Respiratory 18 12 Rate Blood Pressure 99/63 Blood Pressure 149/89 [Right] O2 Sat by Pulse [address] scan noted. Patient has been reassured. She has been referred back to her primary care. Patient being discharged home with discharge plan of care including diet, activity, medications and follow-up. She verbalizes understanding of plan of care - Differential Diagnosis ro hernia Critical care attestation.: If time is entered above; I have spent that time in minutes in the direct care of this critically ill patient, excluding procedure time. ED Disposition Clinical Impression: Abdominal pain Disposition: 01 HOME / SELF CARE / HOMELESS Is pt being admited?: No Does the pt Need Aspirin: No Condition: Stable Instructions: Abdominal Pain (ED) Additional Instructions: CT scan is normal today. Follow-up with your PCP. Referrals: PRIMARY CARE [Primary Care Provider] - 3-5 Days Time of Disposition: 11:53
[2021-09-27 12:14] VITALS: BP 149/89
== END 2021-09-27 12:13 | disposition home or self-care (01) ==
LOC: ED 10:10
DX: R10.9 Unspecified abdominal pain (principal); M19.90 Unspecified osteoarthritis, unspecified site; E11.9 Type 2 diabetes mellitus without complications; F41.9 Anxiety disorder, unspecified; Z79.899 Other long term (current) drug therapy; Z98.890 Other specified postprocedural states; Z91.09 Other allergy status, other than to drugs and biological substances
CPT/HCPCS: 74176; 99283